=== PATIENT | male | born 1960 | race Caucasian/White ===

== ENCOUNTER 2021-08-04 11:04 | Day surgery (SDC) | payer MEDICAID ==
[2021-08-04] VITALS (8 sets, daily range): BP systolic 101–157; BP diastolic 41–67
[~2021-08-04] VITALS: Ht 182.9 cm; Wt 113.6 kg
[~2021-08-04 11:04] MED LIST: ALBU18HF2 PO; ALBU6.7H9 INH; ASPI81TA35 PO; ATOR40TA PO; BECL8.7A7 INH; CARV-49 PO; FURO-150 PO; GABA-532 PO; LIDOcaine 1% (10mg/ml)w/preservative injection 20ml MDV ONE; LISI-790 PO; METF750T46 PO; NITR0.4T51 SL; POTA-197 PO; fentaNYL/PF 50MCG/1 ML 2ML syringe ONE; heparin 1,000unit/ml 10ml vial 10 ML ONE; iohexol 350MG/ML 100ml bottle IV ONE; midazolam 1 mg/ML 2ml injection ONE; nitroGLYCERIN-Tridil 50MG/D5W 250 ML IV ONE; oxygen; verapamil 2.5 mg/ml inj IV ONE
[2021-08-04] MEDS ORDERED: LORazepam 0.5 MG tablet PO PRN (11:30)
[2021-08-04] MEDS ORDERED: LIDOcaine/PRILOcaine 5gm cream TP ONE (11:30)
[2021-08-04] MEDS ORDERED: diphenhydrAMINE 25mg capsule PO PRN (11:30)
[2021-08-04] MEDS ORDERED: normal saline 1,000 ML IV SCH (11:30)
[2021-08-04] MEDS ORDERED: HYDR-3972 PO (11:38)
[2021-08-04] MEDS ORDERED: ERTU5TAB PO (11:38)
[2021-08-04] MEDS ORDERED: TRAZ-256 PO (11:38)
[2021-08-04] MEDS ORDERED: APIX5TAB3 PO (11:38)
[2021-08-04] MEDS ORDERED: midazolam 1 mg/ML 2ml injection ONE (13:51)
[2021-08-04] MEDS ORDERED: iohexol 350MG/ML 100ml bottle IV ONE (13:57)
[2021-08-04] MEDS ORDERED: ticagrelor 90mg tablet ONE (14:08)
[2021-08-04] MEDS ORDERED: aspirin 325mg tablet ONE (14:10)
[2021-08-04] MEDS ORDERED: HYDROcodone/acetaminophen 5mg/325mg tablet PO PRN (14:45)
[2021-08-04] MEDS ORDERED: proCHLORperazine 10 MG/2 ml inj IV PRN (14:45)
[2021-08-04] MEDS ORDERED: ondansetron/PF 4mg/2ml inj IV PRN (14:45)
[2021-08-04] MEDS ORDERED: HYDROcodone/acetaminophen 10/325mg tab PO PRN (14:45)
[2021-08-04] MEDS ORDERED: OXAZEpam 15mg capsule PO PRN (14:45)
[2021-08-04] MEDS ORDERED: ticagrelor 90mg tablet PO SCH (20:00)
== END 2021-08-04 17:31 | disposition home or self-care (01) ==
LOC: SSTAY O 11:04
PROVIDERS: ATTEND Internal Medicine Interventional Cardiology
DX: R07.89 Other chest pain (principal); I25.10 Atherosclerotic heart disease of native coronary artery without angina pectoris; G47.33 Obstructive sleep apnea (adult) (pediatric); E11.9 Type 2 diabetes mellitus without complications; I11.0 Hypertensive heart disease with heart failure; I50.9 Heart failure, unspecified; E78.5 Hyperlipidemia, unspecified; J44.9 Chronic obstructive pulmonary disease, unspecified; Z86.73 Personal history of transient ischemic attack (TIA), and cerebral infarction without residual deficits; Z86.19 Personal history of other infectious and parasitic diseases; Z88.0 Allergy status to penicillin; Z91.09 Other allergy status, other than to drugs and biological substances; Z88.8 Allergy status to other drugs, medicaments and biological substances; Z95.810 Presence of automatic (implantable) cardiac defibrillator
CPT/HCPCS: 93005; 93458; 99152; 99153; C1725; C1751; C1769; C1874; C1894; C9600; J1644; J2001; J2250; J3010; J7030; Q0163; Q9967; A4620; J3490

== ENCOUNTER 2022-01-28 01:14 | Inpatient (IN) | payer MEDICAID ==
[~2022-01-28] VITALS: Ht 177.8 cm; Wt 118.4 kg
[~2022-01-28 01:14] MED LIST changes: -ALBU18HF2 PO; -ALBU6.7H9 INH; +APIX5TAB3 PO; -ASPI81TA35 PO; -BECL8.7A7 INH; +ERTU5TAB PO; -FURO-150 PO; +HYDR-3972 PO; -LIDOcaine 1% (10mg/ml)w/preservative injection 20ml MDV ONE; -LISI-790 PO; +LISI5TAB22 PO; -METF750T46 PO; -NITR0.4T51 SL; -POTA-197 PO; +TRAZ-256 PO; -fentaNYL/PF 50MCG/1 ML 2ML syringe ONE; -heparin 1,000unit/ml 10ml vial 10 ML ONE; -iohexol 350MG/ML 100ml bottle IV ONE; -midazolam 1 mg/ML 2ml injection ONE; -nitroGLYCERIN-Tridil 50MG/D5W 250 ML IV ONE; -oxygen; -verapamil 2.5 mg/ml inj IV ONE
[2022-01-28 01:50] LABS: BASOPHILS % (AUTO) 0.4 % (0-1); EOSINOPHILS # (AUTO) 0.2 X10'3 (0-0.9); EOSINOPHILS % (AUTO) 2.2 % (0-6); HEMATOCRIT 36.4 % (42.0-52.0); LYMPHOCYTES # (AUTO) 0.8 X10'3 (1.1-4.8); LYMPHOCYTES % (AUTO) 8.2 % (21-51); MEAN CORPUSCULAR HEMOGLOBIN 28.4 PG (27.0-31.0); MEAN CORPUSCULAR VOLUME 85.9 FL (78-98); MEAN PLATELET VOLUME 9.7 FL (7.4-10.4); MONOCYTES # (AUTO) 0.7 X10'3 (0-0.9); NEUTROPHILS # (AUTO) 8.3 X10'3 (1.8-7.7); NEUTROPHILS % (AUTO) 82.2 % (42-75); PLATELET COUNT 125 X10'3 (140-440); RED BLOOD COUNT 4.24 X10'6 (4.70-6.10); RED CELL DISTRIBUTION WIDTH 14.1 % (11.5-14.5)
[2022-01-28 02:06] LABS: ALANINE AMINOTRANSFERASE 26 U/L (12-78); ALBUMIN 3.2 G/DL (3.4-5.0); ALBUMIN/GLOBULIN RATIO 1.1 (1.1-1.5); ALKALINE PHOSPHATASE 60 IU/L (46-116); ANION GAP 8 (8-16); ASPARTATE AMINO TRANSFERASE 14 U/L (10-37); BILIRUBIN,TOTAL 0.4 MG/DL (0.1-1.0); BLOOD UREA NITROGEN 36 MG/DL (7-18); BUN/CREATININE RATIO 23.2 (5.4-32.0); CALCIUM 7.8 MG/DL (8.5-10.1); CHLORIDE 104 MMOL/L (99-107); CREATININE 1.55 MG/DL (0.60-1.10); GLUCOSE 182 MG/DL (70-104); POTASSIUM 5.1 MMOL/L (3.5-5.1); SODIUM 135 MMOL/L (135-145); TOTAL CARBON DIOXIDE 23.2 MMOL/L (24-32); TOTAL PROTEIN 6.2 G/DL (6.4-8.2); eGFR 46 ML/MIN
[2022-01-28 02:13] LABS: MAGNESIUM 1.4 MG/DL (1.5-2.4)
[2022-01-28] MEDS ORDERED: magnesium 2GM in 50ml NS 50 ML IV PRN (03:00)
[2022-01-28] MEDS ORDERED: magnesium 4gm in 100ml NS 100 ML IV PRN (03:00)
[2022-01-28] MEDS ORDERED: acetaminophen 325mg tablet PO PRN (03:00)
[2022-01-28] MEDS ORDERED: potassium Cl 20 mEq SR tablet PO PRN ×2 (03:00)
[2022-01-28] MEDS ORDERED: morphine 2 MG/ML inj. syringe IV PRN (03:00)
[2022-01-28] MEDS ORDERED: potassium CL 10mEq/100ml bag 100 ML IV PRN (03:00)
[2022-01-28] MEDS ORDERED: ondansetron/PF 4mg/2ml inj IV PRN (03:00)
[2022-01-28] MEDS ORDERED: FURO40TA4 PO (04:05)
[2022-01-28] MEDS ORDERED: CLOP75TA34 PO (04:05)
[2022-01-28] MEDS ORDERED: TRAZ-251 PO (04:05)
[2022-01-28] MEDS ORDERED: TICA90TA2 PO (04:05)
[2022-01-28] MEDS ORDERED: SEMA3TAB4 (04:05)
[2022-01-28] MEDS ORDERED: LISI20TA28 PO (04:05)
[2022-01-28] MEDS ORDERED: glucagon, human recombinant 1mg kit SUBCUT PRN (06:00)
[2022-01-28] MEDS ORDERED: dextrose 50%-water 50ml dispensing syringe IV PRN ×2 (06:00)
[2022-01-28] MEDS ORDERED: DEXTROSE 15 GM of carb/4 tabs (each vial/BOTTLE has 4 tablets) PO PRN ×2 (06:00)
[2022-01-28] MEDS ORDERED: MESSAGE TO PHARMACY PO ONE (06:00)
[2022-01-28 07:32] LABS: HEMOGLOBIN A1C 7.5 % (4.5-6.2)
[2022-01-28] MEDS ORDERED: ERTUGLIFLOZIN PIDOLATE 5 MG PO SCH (08:00)
[2022-01-28] MEDS: carVEDilol 12.5mg tablet PO SCH ×2 (08:00→19:33)
[2022-01-28] MEDS ORDERED: furosemide 40mg tablet PO SCH (08:00)
[2022-01-28] MEDS ORDERED: apixaban 5mg tablet PO SCH (08:00)
[2022-01-28] MEDS ORDERED: HYDROcodone/acetaminophen 10/325mg tab PO PRN (08:00)
[2022-01-28] MEDS: lisinopril 20mg tablet PO SCH ×2 (08:00→19:34)
[2022-01-28] MEDS: gabapentin 300mg capsule PO SCH ×4 (08:00→20:45)
[2022-01-28] MEDS: K and/or MAG REPLACEMENT MC SCH ×2 (08:00→19:28)
[2022-01-28] MEDS ORDERED: ticagrelor 90mg tablet PO SCH (08:00)
[2022-01-28 08:30] VITALS: BP 96/39
[2022-01-28] MEDS ORDERED: furosemide 10 MG/1 ML 10ml inj IV ONE (08:35)
[2022-01-28] MEDS ORDERED: nitroGLYCERIN 0.4mg SUBLingual tab SL PRN (08:35)
[2022-01-28] MEDS ORDERED: methylPREDNISolone sod succ 125mg/2ml vial IV ONE (08:35)
[2022-01-28] MEDS ORDERED: aminophylline 500mg/20ml vial IV PRN (08:35)
[2022-01-28] MEDS ORDERED: metoprolol tartrate 1mg/ml inj IV PRN (08:35)
[2022-01-28] MEDS ORDERED: regadenoson 0.4mg/5ml syringe IV PRN (08:35)
--- NOTE | 2022-01-28 09:17 | NUR ---
Page to Dr. Benitez Message: [id number] Braeden Baird- Unable to do stress today. Need clarification on blood thinners. Zuyl [id number]
[2022-01-28] MEDS: azithromycin 250mg tablet PO SCH (09:34)
[2022-01-28] MEDS: clopidogrel 75mg tablet PO SCH (09:35)
[2022-01-28] MEDS: atorvastatin 20mg tablet PO SCH (09:35)
[2022-01-28] MEDS: CefTRIAXone/D5W-Rocephin 1gm 50 ML IV SCH (10:23)
[2022-01-28 11:00] VITALS: BP 107/47
[2022-01-28] MEDS: ipratropium/albuterol 3ml nebule NEB SCH ×4 (11:00→22:49)
[2022-01-28] MEDS: aspirin 81mg, enteric-coated 1 TAB TABLET.DR PO SCH (11:13)
[2022-01-28] MEDS: magnesium Cl slow-release 64mg tablet PO PRN ×2 (11:13→19:26)
[2022-01-28] MEDS ORDERED: SPIR25TA PO (14:19)
[2022-01-28 15:00] VITALS: BP 126/52
--- NOTE | 2022-01-28 15:55 | NUR ---
Page to Dr. Benitez Message: [id number] Braeden Baird- States he wants to be DNR. Zuly [id number]
[2022-01-28] MEDS: methylPREDNISolone sod succ 125mg/2ml vial IV SCH (16:39)
--- NOTE | 2022-01-28 17:44 | NUR ---
Page to Dr. Benitez Message: [id number] Oli [facility] Rec updated. Pt requests gabapentin 600 HS. Requests DNSerafin. Zuly [id number]
[2022-01-28 18:00] VITALS: BP 113/37
--- NOTE | 2022-01-28 18:10 | NUR ---
Problems reprioritized. Patient report given, questions answered & plan of care reviewed with Judith LONDONO.
[2022-01-28 19:00] VITALS: BP 96/46
[2022-01-28] MEDS: insulin Lispro (HumaLOG) vial - multi-dose SQ SCH ×2 (19:24→21:16)
[2022-01-28] MEDS: furosemide 10 MG/1 ML 10ml inj IV SCH (19:32)
[2022-01-28] MEDS: traZODone 50mg tablet PO SCH (20:46)
[2022-01-28] MEDS: insulin glargine (Lantus) pen - multi-dose SQ SCH (21:13)
[2022-01-28 22:00] VITALS: BP 114/46
[2022-01-29] VITALS (20 sets, daily range): BP systolic 105–137; BP diastolic 34–63
[2022-01-29] MEDS: methylPREDNISolone sod succ 125mg/2ml vial IV SCH ×3 (00:53→15:10)
[2022-01-29] MEDS: ipratropium/albuterol 3ml nebule NEB SCH ×5 (03:03→23:00)
[2022-01-29 06:32] LABS: BASOPHILS % (AUTO) 0.1 % (0-1); EOSINOPHILS % (AUTO) 0 % (0-6); HEMOGLOBIN 11.9 g/dl (14.0-17.9); LYMPHOCYTES # (AUTO) 0.8 X10'3 (1.1-4.8); LYMPHOCYTES % (AUTO) 6.5 % (21-51); MEAN CORPUSCULAR HEMOGLOBIN 27.9 PG (27.0-31.0); MEAN CORPUSCULAR HGB CONC 33.1 g/dL (33.0-36.5); MEAN CORPUSCULAR VOLUME 84.2 FL (78-98); MEAN PLATELET VOLUME 9.8 FL (7.4-10.4); MONOCYTES # (AUTO) 0.2 X10'3 (0-0.9); MONOCYTES % (AUTO) 1.7 % (2-12); NEUTROPHILS # (AUTO) 11.1 X10'3 (1.8-7.7); NEUTROPHILS % (AUTO) 91.7 % (42-75); PLATELET COUNT 133 X10'3 (140-440); RED BLOOD COUNT 4.27 X10'6 (4.70-6.10); RED CELL DISTRIBUTION WIDTH 14.1 % (11.5-14.5); WHITE BLOOD COUNT 12.1 X10'3 (4.5-11.0)
--- NOTE | 2022-01-29 06:38 | NUR ---
Problems reprioritized. Patient report given, questions answered & plan of care reviewed with LUC LONDONO.
[2022-01-29 06:41] LABS: ALBUMIN 3.3 G/DL (3.4-5.0); ANION GAP 10 (8-16); BLOOD UREA NITROGEN 37 MG/DL (7-18); BUN/CREATININE RATIO 25.9 (5.4-32.0); CALCIUM 8.4 MG/DL (8.5-10.1); CHLORIDE 103 MMOL/L (99-107); CREATININE 1.43 MG/DL (0.60-1.10); GLUCOSE 236 MG/DL (70-104); POTASSIUM 4.6 MMOL/L (3.5-5.1); SODIUM 135 MMOL/L (135-145); TOTAL CARBON DIOXIDE 21.7 MMOL/L (24-32); eGFR 50 ML/MIN
[2022-01-29] MEDS: K and/or MAG REPLACEMENT MC SCH ×2 (08:00→19:22)
[2022-01-29] MEDS: aspirin 81mg, enteric-coated 1 TAB TABLET.DR PO SCH ×2 (08:00→13:44)
[2022-01-29] MEDS: clopidogrel 75mg tablet PO SCH ×2 (08:00→13:44)
[2022-01-29] MEDS: furosemide 10 MG/1 ML 10ml inj IV SCH ×2 (08:00→19:21)
[2022-01-29] MEDS: insulin Lispro (HumaLOG) vial - multi-dose SQ SCH ×4 (08:25→21:17)
[2022-01-29] MEDS ORDERED: regadenoson 0.4mg/5ml syringe IV PRN (08:50)
--- NOTE | 2022-01-29 10:00 | NUR ---
Made Dr. Benitez aware blood pressure medication and lasix have been held for low blood pressure. He states to hold off on AM medications until he returned from stress test and see how his blood pressure is when he returns.
[2022-01-29] MEDS: CefTRIAXone/D5W-Rocephin 1gm 50 ML IV SCH (10:20)
--- NOTE | 2022-01-29 11:00 | NUR ---
Dr. Benitez paged with current blood pressure and heart rate to clarify medications
--- NOTE | 2022-01-29 12:01 | NUR ---
Dr. Benitez called back stating to keep patient NPO. States okay to give blood pressure medications.
[2022-01-29] MEDS: carVEDilol 12.5mg tablet PO SCH ×2 (12:08→19:30)
[2022-01-29] MEDS: lisinopril 20mg tablet PO SCH ×2 (12:09→19:34)
[2022-01-29] MEDS: azithromycin 250mg tablet PO SCH (12:11)
[2022-01-29] MEDS: atorvastatin 20mg tablet PO SCH (12:11)
--- NOTE | 2022-01-29 15:18 | NUR ---
Page to Dr. Benitez Message: [id number] Braeden Baird- Wants to be full code now. Zuly [id number]
--- NOTE | 2022-01-29 15:42 | NUR ---
DM Consult: Pt hx T2DM A1C 7.5% currently NPO pending cardiac cath per EMR. Written DM ed w/ RD contact information placed in pt chart. Addendum: 01/29/22 at [address] Amended: Links added.
[2022-01-29] MEDS ORDERED: fentaNYL/PF 50MCG/1 ML 2ML syringe ONE (16:49)
[2022-01-29] MEDS ORDERED: nitroGLYCERIN-Tridil 50MG/D5W 250 ML IV ONE (16:49)
[2022-01-29] MEDS ORDERED: iohexol 350MG/ML 100ml bottle IV ONE (16:49)
[2022-01-29] MEDS ORDERED: LIDOcaine 1% (10mg/ml)w/preservative injection 20ml MDV ONE (16:49)
[2022-01-29] MEDS ORDERED: iohexol 350 MG/ML 50ML vial IV ONE (16:49)
[2022-01-29] MEDS ORDERED: heparin 1,000unit/ml 10ml vial 10 ML ONE (16:49)
[2022-01-29] MEDS ORDERED: midazolam 1 mg/ML 2ml injection ONE ×2 (16:49→17:36)
[2022-01-29] MEDS ORDERED: verapamil 2.5 mg/ml inj IV ONE (16:49)
[2022-01-29] MEDS ORDERED: furosemide 40mg/4ml inj ONE (17:41)
--- NOTE | 2022-01-29 18:00 | NUR ---
Patient arrived from lab rn. Right radial pressure TR band in place. No hematoma present or signs of bleeding. Pulse ox in place on right thumb. Good circulation with no complaints of numbness and tingling. Vital signs stable and patient is alert and orientated.
--- NOTE | 2022-01-29 18:10 | NUR ---
Problems reprioritized. Patient report given, questions answered & plan of care reviewed with Judith LONDONO.
--- NOTE | 2022-01-29 20:42 | NUR ---
vascband removed no hematoma noted at this time
[2022-01-29] MEDS: gabapentin 300mg capsule PO SCH (21:04)
[2022-01-29] MEDS: traZODone 50mg tablet PO SCH (21:04)
[2022-01-29] MEDS: insulin glargine (Lantus) pen - multi-dose SQ SCH (21:14)
[2022-01-30] MEDS: methylPREDNISolone sod succ 125mg/2ml vial IV SCH ×2 (00:45→08:31)
[2022-01-30 02:00] VITALS: BP 108/58
[2022-01-30] MEDS: ipratropium/albuterol 3ml nebule NEB SCH ×3 (03:00→11:43)
[2022-01-30 06:00] VITALS: BP 111/48
--- NOTE | 2022-01-30 06:15 | NUR ---
Problems reprioritized. Patient report given, questions answered & plan of care reviewed with LUC LONDONO.
[2022-01-30 06:57] LABS: BASOPHILS % (AUTO) 0 % (0-1); EOSINOPHILS % (AUTO) 0 % (0-6); HEMATOCRIT 36.4 % (42.0-52.0); HEMOGLOBIN 12.3 g/dl (14.0-17.9); LYMPHOCYTES # (AUTO) 0.9 X10'3 (1.1-4.8); LYMPHOCYTES % (AUTO) 7.1 % (21-51); MEAN CORPUSCULAR HEMOGLOBIN 28.4 PG (27.0-31.0); MEAN CORPUSCULAR HGB CONC 33.9 g/dL (33.0-36.5); MEAN CORPUSCULAR VOLUME 83.8 FL (78-98); MEAN PLATELET VOLUME 10.2 FL (7.4-10.4); MONOCYTES # (AUTO) 0.5 X10'3 (0-0.9); MONOCYTES % (AUTO) 3.8 % (2-12); NEUTROPHILS # (AUTO) 11.7 X10'3 (1.8-7.7); NEUTROPHILS % (AUTO) 89.1 % (42-75); PLATELET COUNT 146 X10'3 (140-440); RED BLOOD COUNT 4.35 X10'6 (4.70-6.10); WHITE BLOOD COUNT 13.1 X10'3 (4.5-11.0)
[2022-01-30 07:07] LABS: ALBUMIN 3.5 G/DL (3.4-5.0); ANION GAP 10 (8-16); BLOOD UREA NITROGEN 44 MG/DL (7-18); BUN/CREATININE RATIO 28.2 (5.4-32.0); CALCIUM 8.6 MG/DL (8.5-10.1); CHLORIDE 103 MMOL/L (99-107); CREATININE 1.56 MG/DL (0.60-1.10); GLUCOSE 207 MG/DL (70-104); POTASSIUM 4.5 MMOL/L (3.5-5.1); SODIUM 136 MMOL/L (135-145); TOTAL CARBON DIOXIDE 23.2 MMOL/L (24-32); eGFR 45 ML/MIN
[2022-01-30] MEDS: furosemide 10 MG/1 ML 10ml inj IV SCH (08:00)
[2022-01-30] MEDS: K and/or MAG REPLACEMENT MC SCH (08:00)
[2022-01-30] MEDS ORDERED: heparin, porcine 5000 units/ml vial SQ SCH (08:00)
[2022-01-30] MEDS: atorvastatin 20mg tablet PO SCH (08:18)
[2022-01-30] MEDS: aspirin 81mg, enteric-coated 1 TAB TABLET.DR PO SCH (08:18)
[2022-01-30] MEDS: carVEDilol 12.5mg tablet PO SCH (08:18)
[2022-01-30] MEDS: clopidogrel 75mg tablet PO SCH (08:18)
[2022-01-30] MEDS: azithromycin 250mg tablet PO SCH (08:19)
[2022-01-30] MEDS: CefTRIAXone/D5W-Rocephin 1gm 50 ML IV SCH (08:23)
[2022-01-30] MEDS: lisinopril 20mg tablet PO SCH (08:32)
[2022-01-30] MEDS: insulin Lispro (HumaLOG) vial - multi-dose SQ SCH ×2 (08:45→13:17)
[2022-01-30 11:00] VITALS: BP 117/46
--- NOTE | 2022-01-30 11:24 | NUR ---
O2 Sat at rest on room air: 95 % If below 89%: Recovery O2 Sat at rest on ___LPM:___%:___% via (mask/nasal cannula, etc..) No further documentation is necessary. If O2 Sat did not drop below 89% on room air,ambulate patient on room air. O2 Sat while ambulating on room air: 91 % Recovery O2 Sat while ambulating on ___LPM:___% No further documentation is necessary. If patient does not drop below 89% while ambulating, he/she does not qualify for home O2.
[2022-01-30] MEDS ORDERED: ASPI-1071 PO (11:55)
[2022-01-30] MEDS ORDERED: CLOP75TA15 PO (11:55)
[2022-01-30] MEDS ORDERED: CEFD300C3 PO (11:55)
[2022-01-30] MEDS ORDERED: PRED10TA23 PO (11:59)
[2022-01-30] MEDS ORDERED: BUDE10.22 INH (12:27)
[2022-01-30] MEDS ORDERED: ALBU8.5H17 INH (12:27)
--- NOTE | 2022-01-30 13:32 | NUR ---
Patient stable for discharge. PIV removed with catheter intact X2. Telemetry removed. Discharge instructions given and patient verbalized understanding. All possessions gathered and patient transferred safely to personal vehicle.
== END 2022-01-30 14:14 | disposition home or self-care (01) | DRG 191 ==
LOC: ER 01:15 → ED HOLD 02:58 → UNDOADMIN 02:58 → ED HOLD 03:00 → PCU 3S 11:11 → ED HOLD 11:11
PROVIDERS: ADMIT Internal Medicine; ATTEND Family Medicine
PROC: 4A023N7 Measurement of Cardiac Sampling and Pressure, Left Heart, Percutaneous Approach (ICD-10-PCS; principal; 2022-01-29)
PROC: B2111ZZ Fluoroscopy of Multiple Coronary Arteries using Low Osmolar Contrast (ICD-10-PCS; 2022-01-29)
PROC: 4A02XM4 Measurement of Cardiac Total Activity, External Approach (ICD-10-PCS; 2022-01-29)
PROC: 3E033HZ Introduction of Radioactive Substance into Peripheral Vein, Percutaneous Approach (ICD-10-PCS; 2022-01-29)
DX: I25.119 Atherosclerotic heart disease of native coronary artery with unspecified angina pectoris (principal); I50.23 Acute on chronic systolic (congestive) heart failure; J96.10 Chronic respiratory failure, unspecified whether with hypoxia or hypercapnia; I24.9 Acute ischemic heart disease, unspecified; Z20.822 Contact with and (suspected) exposure to COVID-19; I11.0 Hypertensive heart disease with heart failure; B18.2 Chronic viral hepatitis C; E11.65 Type 2 diabetes mellitus with hyperglycemia; E78.00 Pure hypercholesterolemia, unspecified; G89.29 Other chronic pain; M54.9 Dorsalgia, unspecified; E78.5 Hyperlipidemia, unspecified; F12.90 Cannabis use, unspecified, uncomplicated; G47.33 Obstructive sleep apnea (adult) (pediatric); J44.9 Chronic obstructive pulmonary disease, unspecified; Z79.02 Long term (current) use of antithrombotics/antiplatelets; Z82.3 Family history of stroke; Z83.3 Family history of diabetes mellitus; Z91.19 Patient's noncompliance with other medical treatment and regimen; Z95.5 Presence of coronary angioplasty implant and graft; Z95.810 Presence of automatic (implantable) cardiac defibrillator; Z99.81 Dependence on supplemental oxygen; Z56.0 Unemployment, unspecified; Z88.0 Allergy status to penicillin; Z88.8 Allergy status to other drugs, medicaments and biological substances; Z79.899 Other long term (current) drug therapy
CPT/HCPCS: 36415; 71045; 78452; 80048; 80053; 82948; 83036; 83735; 83880; 84132; 84484; 85025; 87081; 87635; 93005; 93017; 93458; 94640; 94760; 96365; 96375; 99152; 99285; A4663; A5120; A9500; C1769; C1894; C9803; G0378; J0696; J1644; J1815; J1940; J2250; J2785; J2930; J3010; J3490; Q9967

== ENCOUNTER 2022-09-05 18:58 | Inpatient (IN) | payer MEDICAID ==
[~2022-09-05] VITALS: Ht 177.8 cm; Wt 115.5 kg
[~2022-09-05 18:58] MED LIST changes: +ALBU8.5H17 INH; -APIX5TAB3 PO; +ASPI-1071 PO; +BUDE10.22 INH; +CLOP75TA15 PO; +CLOP75TA34 PO; -ERTU5TAB PO; +LISI20TA28 PO; -LISI5TAB22 PO; +PRED10TA PO; +SEMA3TAB4; +SPIR25TA PO; +TRAZ-251 PO; -TRAZ-256 PO
[2022-09-05 19:38] LABS: BASOPHILS % (AUTO) 0.4 % (0-1); EOSINOPHILS # (AUTO) 0.2 X10'3 (0-0.9); EOSINOPHILS % (AUTO) 1.8 % (0-6); HEMOGLOBIN 14.9 g/dl (14.0-17.9); LYMPHOCYTES # (AUTO) 1.1 X10'3 (1.1-4.8); LYMPHOCYTES % (AUTO) 9.4 % (21-51); MEAN CORPUSCULAR HEMOGLOBIN 27.7 PG (27.0-31.0); MEAN CORPUSCULAR HGB CONC 33.8 g/dL (33.0-36.5); MEAN CORPUSCULAR VOLUME 81.9 FL (78-98); MEAN PLATELET VOLUME 9.8 FL (7.4-10.4); NEUTROPHILS # (AUTO) 9.3 X10'3 (1.8-7.7); NEUTROPHILS % (AUTO) 79.4 % (42-75); PLATELET COUNT 162 X10'3 (140-440); RED BLOOD COUNT 5.37 X10'6 (4.70-6.10); RED CELL DISTRIBUTION WIDTH 16.1 % (11.5-14.5); WHITE BLOOD COUNT 11.7 X10'3 (4.5-11.0)
[2022-09-05 20:05] LABS: ALANINE AMINOTRANSFERASE 59 U/L (12-78); ALBUMIN 3.6 G/DL (3.4-5.0); ALBUMIN/GLOBULIN RATIO 1.2 (1.1-1.5); ALKALINE PHOSPHATASE 88 IU/L (46-116); ANION GAP 11 (8-16); ASPARTATE AMINO TRANSFERASE 13 U/L (10-37); BILIRUBIN,TOTAL 0.7 MG/DL (0.1-1.0); BLOOD UREA NITROGEN 38 MG/DL (7-18); BUN/CREATININE RATIO 22.5 (5.4-32.0); CALCIUM 8.9 MG/DL (8.5-10.1); CHLORIDE 102 MMOL/L (99-107); CREATININE 1.69 MG/DL (0.60-1.10); GLUCOSE 170 MG/DL (70-104); POTASSIUM 4.8 MMOL/L (3.5-5.1); SODIUM 140 MMOL/L (135-145); TOTAL CARBON DIOXIDE 26.9 MMOL/L (24-32); TOTAL PROTEIN 6.5 G/DL (6.4-8.2); eGFR 41 ML/MIN
--- NOTE | 2022-09-05 20:17 | NUR ---
troponin 101. Dr. Patton notified
[2022-09-05] MEDS ORDERED: furosemide 10 MG/1 ML 10ml inj IV ONE (21:45)
[2022-09-05] MEDS ORDERED: magnesium hydroxide 30ml (MOM) UD suspension PO PRN (23:15)
[2022-09-05] MEDS ORDERED: diphenhydrAMINE 50 mg/ml inj IV PRN (23:15)
[2022-09-05] MEDS ORDERED: mag hydrox/Alum hydrox/simeth 30ml oral suspension PO PRN (23:15)
[2022-09-05] MEDS ORDERED: ondansetron/PF 4mg/2ml inj IV PRN (23:15)
[2022-09-05] MEDS ORDERED: HYDROcodone/acetaminophen 5mg/325mg tablet PO PRN (23:15)
[2022-09-05] MEDS ORDERED: ondansetron 4mg rapidly disintigrating tab PO PRN (23:15)
[2022-09-05] MEDS ORDERED: HYDROcodone/acetaminophen 10/325mg tab PO PRN (23:15)
[2022-09-05] MEDS ORDERED: morphine 2 MG/ML inj. syringe IV PRN ×2 (23:15)
[2022-09-05] MEDS ORDERED: bisacodyl 10mg suppository rectal RC PRN (23:15)
[2022-09-05] MEDS ORDERED: diphenhydrAMINE 25mg capsule PO PRN (23:15)
[2022-09-05] MEDS ORDERED: acetaminophen 325mg tablet PO PRN ×2 (23:15)
[2022-09-05] MEDS ORDERED: glucagon, human recombinant 1mg kit SUBCUT PRN (23:20)
[2022-09-05] MEDS ORDERED: dextrose 50%-water 50ml dispensing syringe IV PRN ×2 (23:20)
[2022-09-05] MEDS ORDERED: insulin Lispro (HumaLOG) vial - multi-dose SQ SCH (23:20)
[2022-09-05] MEDS ORDERED: DEXTROSE 15 GM of carb/4 tabs (each vial/BOTTLE has 4 tablets) PO PRN ×2 (23:20)
[2022-09-05] MEDS ORDERED: MESSAGE TO PHARMACY PO ONE (23:20)
[2022-09-05 23:38] LABS: MAGNESIUM 1.9 MG/DL (1.5-2.4); PHOSPHORUS 4.8 MG/DL (2.3-4.5)
[2022-09-05 23:53] LABS: APTT 27 SECONDS (22-32); D-DIMER 1.03 MG/L FEU (0-0.50)
[2022-09-06] MEDS ORDERED: ERTU15TA PO (00:50)
[2022-09-06] MEDS ORDERED: IPRA3AMP31 NEB (00:50)
[2022-09-06] MEDS ORDERED: GABA300C PO (00:50)
[2022-09-06] MEDS ORDERED: BUDE10.27 INH (00:50)
[2022-09-06] MEDS ORDERED: FURO40TA4 PO (00:50)
[2022-09-06] MEDS ORDERED: SACU1TAB PO (00:50)
[2022-09-06] MEDS ORDERED: BUSP7.5T5 PO (00:50)
[2022-09-06] MEDS ORDERED: ATOR-2 PO (00:50)
[2022-09-06] MEDS ORDERED: ASPI81TA52 PO (00:53)
[2022-09-06] MEDS ORDERED: ALBU8.5H17 IH (00:53)
[2022-09-06] MEDS ORDERED: albuterol 2.5 MG/3 ML nebule NEB PRN (03:40)
[2022-09-06 03:44] LABS: BASOPHILS % (AUTO) 0.3 % (0-1); EOSINOPHILS # (AUTO) 0.1 X10'3 (0-0.9); EOSINOPHILS % (AUTO) 1.1 % (0-6); HEMATOCRIT 44.3 % (42.0-52.0); HEMOGLOBIN 14.6 g/dl (14.0-17.9); LYMPHOCYTES # (AUTO) 1.8 X10'3 (1.1-4.8); LYMPHOCYTES % (AUTO) 16.6 % (21-51); MEAN CORPUSCULAR HEMOGLOBIN 27.4 PG (27.0-31.0); MEAN CORPUSCULAR VOLUME 82.9 FL (78-98); MEAN PLATELET VOLUME 9.9 FL (7.4-10.4); MONOCYTES # (AUTO) 0.9 X10'3 (0-0.9); MONOCYTES % (AUTO) 8.1 % (2-12); NEUTROPHILS # (AUTO) 8.1 X10'3 (1.8-7.7); NEUTROPHILS % (AUTO) 73.9 % (42-75); PLATELET COUNT 162 X10'3 (140-440); RED BLOOD COUNT 5.34 X10'6 (4.70-6.10); RED CELL DISTRIBUTION WIDTH 16.2 % (11.5-14.5); WHITE BLOOD COUNT 10.9 X10'3 (4.5-11.0)
[2022-09-06 04:40] LABS: ALANINE AMINOTRANSFERASE 66 U/L (12-78); ALBUMIN 3.7 G/DL (3.4-5.0); ALBUMIN/GLOBULIN RATIO 1.3 (1.1-1.5); ALKALINE PHOSPHATASE 64 IU/L (46-116); ANION GAP 14 (8-16); ASPARTATE AMINO TRANSFERASE 21 U/L (10-37); BILIRUBIN,TOTAL 1.1 MG/DL (0.1-1.0); BLOOD UREA NITROGEN 39 MG/DL (7-18); BUN/CREATININE RATIO 24.4 (5.4-32.0); CALCIUM 8.9 MG/DL (8.5-10.1); CHLORIDE 99 MMOL/L (99-107); GLUCOSE 125 MG/DL (70-104); POTASSIUM 4.3 MMOL/L (3.5-5.1); SODIUM 141 MMOL/L (135-145); TOTAL CARBON DIOXIDE 28.3 MMOL/L (24-32); TOTAL PROTEIN 6.6 G/DL (6.4-8.2); eGFR 44 ML/MIN
[2022-09-06] MEDS: budesonide 0.5mg/2ml UD nebule IH SCH ×2 (07:16→19:54)
[2022-09-06] MEDS: ipratropium/albuterol 3ml nebule NEB SCH ×3 (07:16→19:54)
[2022-09-06] MEDS: aspirin 81mg, enteric-coated 1 TAB TABLET.DR PO SCH (07:49)
[2022-09-06] MEDS: carvedilol 6.25mg tablet PO SCH ×2 (07:50→20:35)
[2022-09-06] MEDS: clopidogrel 75mg tablet PO SCH (07:50)
[2022-09-06] MEDS: pantoprazole 40mg Tablet.DR PO SCH (07:50)
[2022-09-06] MEDS: gabapentin 300mg capsule PO SCH ×3 (07:50→20:34)
[2022-09-06] MEDS: docusate sod 100mg capsule PO SCH ×2 (07:59→20:35)
[2022-09-06] MEDS: heparin, porcine 5000 units/ml vial SQ SCH ×2 (07:59→20:35)
[2022-09-06] MEDS ORDERED: furosemide 10 MG/1 ML 10ml inj IV SCH (08:00)
[2022-09-06] MEDS: sacubitril/valsartan 24mg-26mg tablet PO SCH ×2 (08:30→20:34)
[2022-09-06] MEDS: busPIRone 15mg tablet PO SCH ×2 (08:30→20:34)
[2022-09-06] MEDS: spironolactone 25 MG tablet PO SCH (08:31)
[2022-09-06 10:04] VITALS: BP 106/44
--- NOTE | 2022-09-06 10:04 | NUR ---
Pt arrived to the PCU.
[2022-09-06] MEDS ORDERED: magnesium 4gm in 100ml NS 100 ML IV PRN (11:00)
[2022-09-06] MEDS ORDERED: potassium CL 10mEq/100ml bag 100 ML IV PRN (11:00)
[2022-09-06] MEDS ORDERED: magnesium Cl slow-release 64mg tablet PO PRN (11:00)
[2022-09-06] MEDS ORDERED: potassium Cl 20 mEq SR tablet PO PRN ×2 (11:00)
[2022-09-06] MEDS ORDERED: furosemide 40mg/4ml inj IV STA (11:35)
[2022-09-06 11:44] LABS: HEMOGLOBIN A1C 7.4 % (4.5-6.2)
[2022-09-06 12:50] LABS: CHOL/HDL RATIO 2.8 (0.00-4.99); CHOLESTEROL 141 MG/DL (0-200); HDL CHOLESTEROL 51 MG/DL (35-60); LDL CHOLESTEROL 79 MG/DL (50-100); TRIGLYCERIDES 88 MG/DL (20-135)
[2022-09-06 15:00] VITALS: BP 103/52
--- NOTE | 2022-09-06 15:51 | NUR ---
Notified Dr. Emmanuel Carreno Is requesting Ativan for anxiety.
[2022-09-06 18:00] VITALS: BP 134/64
[2022-09-06] MEDS: K and/or MAG REPLACEMENT MC SCH (20:00)
[2022-09-06] MEDS: furosemide 10 MG/1 ML 10ml inj IV SCH (20:00)
[2022-09-06] MEDS ORDERED: traZODone 50mg tablet PO SCH (21:00)
[2022-09-06] MEDS ORDERED: atorvastatin 20mg tablet PO SCH (21:00)
[2022-09-06] MEDS ORDERED: insulin glargine (Lantus) pen - multi-dose SQ SCH (21:00)
[2022-09-06 22:00] VITALS: BP 108/52
[2022-09-07 02:08] VITALS: BP 106/43
[2022-09-07 06:00] VITALS: BP 104/55
--- NOTE | 2022-09-07 06:10 | NUR ---
Problems reprioritized. Patient report given, questions answered & plan of care reviewed with BRY SIM.
[2022-09-07 07:02] LABS: BASOPHILS # (AUTO) 0.1 X10'3 (0-0.2); BASOPHILS % (AUTO) 0.9 % (0-1); EOSINOPHILS # (AUTO) 0.3 X10'3 (0-0.9); EOSINOPHILS % (AUTO) 3.2 % (0-6); HEMATOCRIT 41.6 % (42.0-52.0); HEMOGLOBIN 13.6 g/dl (14.0-17.9); LYMPHOCYTES # (AUTO) 1.9 X10'3 (1.1-4.8); LYMPHOCYTES % (AUTO) 22.8 % (21-51); MEAN CORPUSCULAR HEMOGLOBIN 27.5 PG (27.0-31.0); MEAN CORPUSCULAR HGB CONC 32.8 g/dL (33.0-36.5); MEAN CORPUSCULAR VOLUME 83.7 FL (78-98); MEAN PLATELET VOLUME 10.1 FL (7.4-10.4); MONOCYTES # (AUTO) 0.9 X10'3 (0-0.9); MONOCYTES % (AUTO) 11.3 % (2-12); NEUTROPHILS # (AUTO) 5.1 X10'3 (1.8-7.7); NEUTROPHILS % (AUTO) 61.8 % (42-75); PLATELET COUNT 160 X10'3 (140-440); RED BLOOD COUNT 4.97 X10'6 (4.70-6.10); RED CELL DISTRIBUTION WIDTH 16.2 % (11.5-14.5); WHITE BLOOD COUNT 8.2 X10'3 (4.5-11.0)
[2022-09-07 07:33] LABS: ALANINE AMINOTRANSFERASE 44 U/L (12-78); ALBUMIN 3.2 G/DL (3.4-5.0); ALBUMIN/GLOBULIN RATIO 1.4 (1.1-1.5); ALKALINE PHOSPHATASE 57 IU/L (46-116); ANION GAP 6 (8-16); ASPARTATE AMINO TRANSFERASE 20 U/L (10-37); BILIRUBIN,TOTAL 1.1 MG/DL (0.1-1.0); BLOOD UREA NITROGEN 42 MG/DL (7-18); BUN/CREATININE RATIO 23.9 (5.4-32.0); CALCIUM 8.5 MG/DL (8.5-10.1); CHLORIDE 102 MMOL/L (99-107); CREATININE 1.76 MG/DL (0.60-1.10); GLUCOSE 112 MG/DL (70-104); MAGNESIUM 2.1 MG/DL (1.5-2.4); PHOSPHORUS 4.1 MG/DL (2.3-4.5); POTASSIUM 4.1 MMOL/L (3.5-5.1); SODIUM 139 MMOL/L (135-145); TOTAL CARBON DIOXIDE 30.8 MMOL/L (24-32); TOTAL PROTEIN 5.5 G/DL (6.4-8.2); eGFR 39 ML/MIN
[2022-09-07] MEDS: K and/or MAG REPLACEMENT MC SCH (08:00)
[2022-09-07] MEDS: carvedilol 6.25mg tablet PO SCH (08:09)
[2022-09-07] MEDS: clopidogrel 75mg tablet PO SCH (08:09)
[2022-09-07] MEDS: pantoprazole 40mg Tablet.DR PO SCH (08:09)
[2022-09-07] MEDS: aspirin 81mg, enteric-coated 1 TAB TABLET.DR PO SCH (08:10)
[2022-09-07] MEDS: docusate sod 100mg capsule PO SCH (08:10)
[2022-09-07] MEDS: heparin, porcine 5000 units/ml vial SQ SCH (08:10)
[2022-09-07] MEDS: gabapentin 300mg capsule PO SCH ×2 (08:10→12:31)
[2022-09-07 08:15] VITALS: BP 102/43
[2022-09-07] MEDS: furosemide 10 MG/1 ML 10ml inj IV SCH (08:18)
[2022-09-07] MEDS: budesonide 0.5mg/2ml UD nebule IH SCH (08:32)
[2022-09-07] MEDS: ipratropium/albuterol 3ml nebule NEB SCH ×2 (08:32→13:00)
--- NOTE | 2022-09-07 10:18 | NUR ---
Paged EKG [id number]. Oli. MONIKA order rec'd. Thx
[2022-09-07] MEDS: busPIRone 15mg tablet PO SCH (10:27)
[2022-09-07] MEDS: sacubitril/valsartan 24mg-26mg tablet PO SCH (10:29)
[2022-09-07] MEDS: spironolactone 25 MG tablet PO SCH (10:29)
[2022-09-07 10:30] VITALS: BP 107/52
--- NOTE | 2022-09-07 12:49 | NUR ---
DM consult: Per EMR pt with T2DM, well controlled with A1c 7.4% which is stable with A1c back to 2016. Written DM education with RD contact information placed in patient's chart. Will remain available. Addendum: 09/07/22 at [address] Amended: Links added.
--- NOTE | 2022-09-07 14:57 | NUR ---
Paged vascular [id number]. Oli. Pt ready back in the room. Thx
[2022-09-07 15:15] VITALS: BP 98/50
[2022-09-07] MEDS ORDERED: LORA-269 PO (16:56)
--- NOTE | 2022-09-07 17:34 | NUR ---
Pt stable for DC per MD orders PIV was removed - pt tolerated well. Tele box # 15 returned to telephoto engineer monitor. All d/c ppwk was rev'd with patient and patient - Pt verbalized understanding. IS given to patient and education provided. All personal belongings were sent with patient. Pt wheeled down in W/C to private vehicle where was waiting. Follow up Appts with PCP and Dr Currie have already been made by pt .
== END 2022-09-07 17:28 | disposition home or self-care (01) | DRG 194 ==
LOC: ER 18:59 → ED HOLD 23:16 → PCU 3S 09-06 09:58
PROVIDERS: ADMIT Family Medicine; ATTEND Family Medicine
PROC: CB121ZZ Planar Nuclear Medicine Imaging of Lungs and Bronchi using Technetium 99m (Tc-99m) (ICD-10-PCS; principal; 2022-09-07)
DX: I13.0 Hypertensive heart and chronic kidney disease with heart failure and stage 1 through stage 4 chronic kidney disease, or unspecified chronic kidney disease (principal); J96.20 Acute and chronic respiratory failure, unspecified whether with hypoxia or hypercapnia; I21.A1 Myocardial infarction type 2; I50.43 Acute on chronic combined systolic (congestive) and diastolic (congestive) heart failure; N17.9 Acute kidney failure, unspecified; E11.22 Type 2 diabetes mellitus with diabetic chronic kidney disease; E11.65 Type 2 diabetes mellitus with hyperglycemia; E78.00 Pure hypercholesterolemia, unspecified; F41.9 Anxiety disorder, unspecified; G89.4 Chronic pain syndrome; Z20.822 Contact with and (suspected) exposure to COVID-19; B19.20 Unspecified viral hepatitis C without hepatic coma; G47.00 Insomnia, unspecified; M54.9 Dorsalgia, unspecified; F32.A Depression, unspecified; I25.10 Atherosclerotic heart disease of native coronary artery without angina pectoris; E66.01 Morbid (severe) obesity due to excess calories; J44.9 Chronic obstructive pulmonary disease, unspecified; N18.9 Chronic kidney disease, unspecified; Z56.0 Unemployment, unspecified; Z83.3 Family history of diabetes mellitus; Z87.891 Personal history of nicotine dependence; Z95.0 Presence of cardiac pacemaker; Z95.5 Presence of coronary angioplasty implant and graft; Z99.81 Dependence on supplemental oxygen; Z88.0 Allergy status to penicillin; Z88.8 Allergy status to other drugs, medicaments and biological substances; Z79.899 Other long term (current) drug therapy; Z68.36 Body mass index [BMI] 36.0-36.9, adult
CPT/HCPCS: 36415; 71045; 78452; 80053; 80061; 82948; 83036; 83735; 83880; 84100; 84443; 84484; 85025; 85379; 85610; 85730; 87081; 87635; 93005; 93970; 94640; 94760; 99285; A9500; G0378; J1644; J1815; J1940

== ENCOUNTER 2022-10-29 16:26 | Inpatient (IN) | payer MEDICAID ==
[~2022-10-29] VITALS: Ht 177.8 cm; Wt 113.6 kg
[~2022-10-29 16:26] MED LIST changes: +ALBU8.5H17 IH; -ALBU8.5H17 INH; -ASPI-1071 PO; +ASPI81TA52 PO; +ATOR-2 PO; -ATOR40TA PO; -BUDE10.22 INH; +BUDE10.27 INH; +BUSP7.5T5 PO; -CLOP75TA15 PO; +ERTU15TA PO; +FURO40TA4 PO; -GABA-532 PO; +GABA300C PO; +IPRA3AMP31 NEB; +LORA-269 PO; +SACU1TAB PO; -SEMA3TAB4
[2022-10-29] MEDS ORDERED: calcium gluconate inj. 3 GM in normal saline 100ml IV soln 100 ML IV ONE (16:50)
[2022-10-29 16:58] LABS: BASOPHILS % (AUTO) 0.3 % (0-1); EOSINOPHILS % (AUTO) 0.1 % (0-6); HEMOGLOBIN 12.7 g/dl (14.0-17.9); LYMPHOCYTES # (AUTO) 0.5 X10'3 (1.1-4.8); LYMPHOCYTES % (AUTO) 6.9 % (21-51); MEAN CORPUSCULAR HEMOGLOBIN 27.3 PG (27.0-31.0); MEAN CORPUSCULAR HGB CONC 32.5 g/dL (33.0-36.5); MEAN CORPUSCULAR VOLUME 84.1 FL (78-98); MEAN PLATELET VOLUME 9.9 FL (7.4-10.4); MONOCYTES # (AUTO) 1.1 X10'3 (0-0.9); MONOCYTES % (AUTO) 15.1 % (2-12); NEUTROPHILS # (AUTO) 5.6 X10'3 (1.8-7.7); NEUTROPHILS % (AUTO) 77.6 % (42-75); PLATELET COUNT 419 X10'3 (140-440); RED BLOOD COUNT 4.64 X10'6 (4.70-6.10); RED CELL DISTRIBUTION WIDTH 19.6 % (11.5-14.5); WHITE BLOOD COUNT 7.3 X10'3 (4.5-11.0)
[2022-10-29] MEDS: CALCIUM GLUC 1gm/50ml NACL,iso 50 ML IV SCH ×4 (17:00→19:38)
[2022-10-29 17:05] LABS: ALBUMIN 2.9 G/DL (3.4-5.0); ANION GAP 15 (8-16); BLOOD UREA NITROGEN 98 MG/DL (7-18); BUN/CREATININE RATIO 23.3 (5.4-32.0); CALCIUM 8.7 MG/DL (8.5-10.1); CHLORIDE 85 MMOL/L (99-107); GLUCOSE 165 MG/DL (70-104); SODIUM 122 MMOL/L (135-145); TOTAL CARBON DIOXIDE 22.3 MMOL/L (24-32); eGFR 14 ML/MIN
[2022-10-29] MEDS ORDERED: normal saline 1000ML IV soln IVB ONE (17:10)
--- NOTE | 2022-10-29 17:44 | NUR ---
PT UP TO COMMODE WITH STAND BY ASSIST. PT SPO2 DECLINE TO 78% ON RA ON EXERTION. SPO2 RECOVERY ON RA QUICKLY.
[2022-10-29 18:06] LABS: ALANINE AMINOTRANSFERASE 318 U/L (12-78); ALBUMIN/GLOBULIN RATIO 0.8 (1.1-1.5); ALKALINE PHOSPHATASE 338 IU/L (46-116); ASPARTATE AMINO TRANSFERASE 383 U/L (10-37); BILIRUBIN,DIRECT 3.1 MG/DL (0-0.3); BILIRUBIN,TOTAL 3.5 MG/DL (0.1-1.0); TOTAL PROTEIN 6.7 G/DL (6.4-8.2)
[2022-10-29 18:22] LABS: TOTAL CELLS COUNTED 100
[2022-10-29 18:23] LABS: ANISOCYTOSIS 2+; ELLIPTOCYTES 1+; PLATELET ESTIMATE NORMAL; SCHISTOCYTES FEW
[2022-10-29 18:24] LABS: BURR CELLS 1+
[2022-10-29 18:25] LABS: POLYCHROMASIA FEW
--- NOTE | 2022-10-29 18:42 | NUR ---
ASSUMED CARE OF PATIENT AFTER RECIEVING REPORT PT. VISITING WITH FAMILY MEMBER, DENIES ANY C/O DISCOMFORT AT THIS TIME.
[2022-10-29 19:45] LABS: PHOSPHORUS 7.2 MG/DL (2.3-4.5)
[2022-10-29] MEDS ORDERED: acetaminophen 325mg tablet PO PRN (19:50)
[2022-10-29] MEDS ORDERED: normal saline 1000ml 1,000 ML IV SCH (19:50)
[2022-10-29 20:16] LABS: OSMOLALITY 296 MOSM/K (280-300)
[2022-10-29] MEDS ORDERED: LORA-269 PO ×2 (20:56→22:14)
[2022-10-29] MEDS ORDERED: temazepam 15mg capsule PO PRN (21:00)
[2022-10-29] MEDS: sodium bicarbonate (8.4%) inj. 100 MEQ in dextrose 5%-water 1,000 ML IV SCH (21:23)
[2022-10-29] MEDS: heparin, porcine 5000 units/ml vial SQ SCH (21:24)
[2022-10-29 21:40] LABS: CLARITY,URINE CLOUDY (Clear); COLOR,URINE YELLOW (Yellow); GLUCOSE, URINE NEGATIVE (Neg); KETONES,URINE NEGATIVE (Neg); LEUKOCYTE ESTERASE ,URINE NEGATIVE (Neg); NITRITES, URINE NEGATIVE (Neg); OCCULT BLOOD,URINE MODERATE (Neg); PROTEIN,URINE 100 mg/dl (Neg)
[2022-10-29 21:50] LABS: UA COLLECTION TYPE VOIDED
[2022-10-29 21:51] LABS: OSMOLALITY UA 347 MOSM/K (50-1400)
[2022-10-29 21:54] LABS: AMORPHOUS URATES 3+; BACTERIA,URINE 1+ /HPF (Neg); SODIUM,URINE RANDOM < 15 MEQ/L; SQUAMOUS EPITHELIAL CELL,UR MANY /LPF (FEW); TOTAL PROTEIN,URINE RANDOM 365.3 MG/DL
[2022-10-29] MEDS ORDERED: SPIR50TA5 PO (22:13)
[2022-10-29] MEDS ORDERED: [UNRECOGNIZED DRUG - CODE] (22:14)
[2022-10-29] MEDS ORDERED: ACET-2119 PO (22:14)
[2022-10-29] MEDS ORDERED: PANT-47 PO (22:14)
[2022-10-29] MEDS ORDERED: PARO20TA6 PO (22:14)
[2022-10-29] MEDS ORDERED: LACT10SO7 PO (22:14)
[2022-10-29] MEDS ORDERED: KAY15L PO (22:14)
[2022-10-29] MEDS ORDERED: DOCU100C40 PO (22:14)
[2022-10-29] MEDS ORDERED: NITR0.4T51 SL (22:14)
[2022-10-29] MEDS ORDERED: ALB0.5UD IH (22:14)
[2022-10-29] MEDS ORDERED: ONDA8TAB13 PO (22:14)
[2022-10-29] MEDS ORDERED: ZITTEL BALM TOP (22:14)
[2022-10-29] MEDS ORDERED: GABA-530 PO (22:14)
[2022-10-29] MEDS ORDERED: PRAM113C TOP (22:14)
[2022-10-29] MEDS ORDERED: NYST30CR34 TOP (22:14)
[2022-10-29] MEDS ORDERED: INSU100V43 SQ (22:14)
[2022-10-29] MEDS ORDERED: LANTUS SQ (22:14)
[2022-10-29] MEDS ORDERED: MICO45CR46 TOP (22:14)
[2022-10-29] MEDS ORDERED: POLY119P2 PO (22:14)
[2022-10-29] MEDS ORDERED: HYDR-3965 PO (22:14)
[2022-10-29] MEDS ORDERED: FURO40SO4 IVP (22:14)
--- NOTE | 2022-10-29 23:58 | NUR ---
Patient in room ED 6. I have received report from Rubina EVERETT RN and had the opportunity to ask questions and assume patient care.
[2022-10-30] VITALS (20 sets, daily range): BP systolic 106–135; BP diastolic 45–70
[2022-10-30] MEDS ORDERED: PARO10TA4 PO (00:09)
[2022-10-30] MEDS ORDERED: ASPI-920 PO (00:09)
[2022-10-30] MEDS ORDERED: PRAM177L28 TOP (00:09)
[2022-10-30] MEDS ORDERED: MICO57CR2 TOP (00:09)
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
[2022-10-30] MEDS ORDERED: LORA0.5P PO (00:37)
[2022-10-30] MEDS ORDERED: ONDA4TAB12 PO (00:37)
[2022-10-30 07:34] LABS: BASOPHILS % (AUTO) 0.1 % (0-1); EOSINOPHILS % (AUTO) 0 % (0-6); HEMATOCRIT 38.9 % (42.0-52.0); HEMOGLOBIN 12.7 g/dl (14.0-17.9); LYMPHOCYTES # (AUTO) 0.5 X10'3 (1.1-4.8); LYMPHOCYTES % (AUTO) 7.5 % (21-51); MEAN CORPUSCULAR HEMOGLOBIN 27.2 PG (27.0-31.0); MEAN CORPUSCULAR HGB CONC 32.6 g/dL (33.0-36.5); MEAN CORPUSCULAR VOLUME 83.3 FL (78-98); MEAN PLATELET VOLUME 10.4 FL (7.4-10.4); MONOCYTES % (AUTO) 14.4 % (2-12); NEUTROPHILS # (AUTO) 5.4 X10'3 (1.8-7.7); PLATELET COUNT 421 X10'3 (140-440); RED BLOOD COUNT 4.67 X10'6 (4.70-6.10); WHITE BLOOD COUNT 6.9 X10'3 (4.5-11.0)
[2022-10-30] MEDS ORDERED: clopidogrel 75mg tablet PO SCH (08:00)
[2022-10-30 08:10] LABS: ALANINE AMINOTRANSFERASE 422 U/L (12-78); ALBUMIN/GLOBULIN RATIO 0.8 (1.1-1.5); ALKALINE PHOSPHATASE 350 IU/L (46-116); ANION GAP 14 (8-16); ASPARTATE AMINO TRANSFERASE 526 U/L (10-37); BILIRUBIN,TOTAL 3.8 MG/DL (0.1-1.0); BLOOD UREA NITROGEN 100 MG/DL (7-18); BUN/CREATININE RATIO 21.9 (5.4-32.0); CHLORIDE 83 MMOL/L (99-107); CREATININE 4.57 MG/DL (0.60-1.10); GLUCOSE 150 MG/DL (70-104); POTASSIUM 5.9 MMOL/L (3.5-5.1); TOTAL PROTEIN 6.9 G/DL (6.4-8.2); eGFR 13 ML/MIN
[2022-10-30 08:11] LABS: SODIUM 119 MMOL/L (135-145)
--- NOTE | 2022-10-30 08:15 | NUR ---
Problems reprioritized. Patient report given, questions answered & plan of care reviewed with Alexis LONDONO.
[2022-10-30] MEDS: albuterol 2.5 MG/3 ML nebule NEB PRN ×3 (08:23→21:05)
[2022-10-30] MEDS: budesonide 0.5mg/2ml UD nebule IH SCH ×2 (08:23→21:05)
--- NOTE | 2022-10-30 08:40 | NUR ---
hospitalist paged with critical lab results of: Sodium 119. No new orders at this time
[2022-10-30] MEDS: carVEDilol 3.125mg tablet PO SCH ×2 (09:16→22:23)
[2022-10-30] MEDS: sodium bicarbonate (8.4%) inj. 100 MEQ in dextrose 5%-water 1,000 ML IV SCH ×2 (09:17→15:25)
[2022-10-30] MEDS: busPIRone 15mg tablet PO SCH ×2 (09:21→22:23)
[2022-10-30] MEDS: heparin, porcine 5000 units/ml vial SQ SCH (09:22)
[2022-10-30] MEDS ORDERED: pneumococcal 23-VAL P-sac vacc 25 mcg/0.5ml vial IMVAC ONE (10:00)
[2022-10-30] MEDS ORDERED: heparin 1,000 units/ml 10ml inj HE ONE ×4 (11:10→11:50)
[2022-10-30] MEDS ORDERED: mannitol 12.5gm/50mL VIAL IV ONE (11:15)
[2022-10-30] MEDS ORDERED: EPOETIN ALFA-EPBX 20,000 UNIT/ML 1 ML MDV IV ONE (11:15)
[2022-10-30] MEDS ORDERED: albumin (human) 25% 100ml IV 100 ML IV PRN (11:15)
[2022-10-30] MEDS ORDERED: heparin 1,000unit/ml 10ml vial 10 ML IV ONE (11:15)
[2022-10-30] MEDS ORDERED: heparin 1,000 units/ml 10ml inj IV ONE (11:15)
--- NOTE | 2022-10-30 11:44 | NUR ---
ORDERS FOR STAT CHEST XRAY PUT IN PER DR. CEDILLO FOR URVASHI PLACEMENT.
--- NOTE | 2022-10-30 12:00 | NUR ---
Orders for STAT 2 view chest xray put in per Dr. Her.
[2022-10-30] MEDS ORDERED: sodium polystyrene sulfonate 15gm/60ml oral suspension PO ONE ×2 (14:20→17:10)
[2022-10-30] MEDS ORDERED: insulin regular, human 10 units/0.1 ml syringe IV ONE ×2 (14:20→17:10)
[2022-10-30] MEDS ORDERED: dextrose 50%-water 50ml dispensing syringe IV ONE ×2 (14:20→17:10)
[2022-10-30] MEDS ORDERED: calcium chloride 100 MG/1 ML inj IV ONE (14:20)
--- NOTE | 2022-10-30 14:23 | NUR ---
Received pt report from Alexis LONDONO. Patient coming to room 2007.
--- NOTE | 2022-10-30 14:36 | NUR ---
Patient will be going to OR today per Dr. Weaver and Dr. Navarrete to have line removed from carotid.
[2022-10-30] MEDS: ondansetron/PF 4mg/2ml inj IV PRN ×2 (15:36→22:23)
[2022-10-30] MEDS ORDERED: SODIUM ZIRCONIUM CYCLOSILICATE 10 GM POWD.PACK PO ONE ×2 (17:10→21:00)
[2022-10-30] MEDS ORDERED: heparin sodium, porcine/PF 100unit/ml 5ML syringe ONE (17:52)
[2022-10-30] MEDS ORDERED: heparin 10,000 units/1 ML INJ ONE ×2 (17:52→19:23)
[2022-10-30] MEDS ORDERED: HYDROmorphone/PF 0.2 MG/ML SYRINGE IV PRN ×2 (17:55)
[2022-10-30] MEDS ORDERED: morphine 2 MG/ML inj. syringe IV PRN (17:55)
[2022-10-30] MEDS ORDERED: proCHLORperazine 10 MG/2 ml inj IV PRN (17:55)
[2022-10-30] MEDS ORDERED: labetalol 20mg/4ml (5mg/ml) syringe IV PRN (17:55)
[2022-10-30] MEDS ORDERED: morphine 4 MG/ML inj SYRINge IV PRN (17:55)
[2022-10-30] MEDS ORDERED: ondansetron/PF 4mg/2ml inj IV PRN (17:55)
[2022-10-30] MEDS ORDERED: hydrALAZINE 20mg/ml inj. IV PRN (17:55)
[2022-10-30] MEDS ORDERED: ringers solution, lacted 1,000 ML IV SCH (17:55)
[2022-10-30] MEDS ORDERED: fentaNYL/PF 50MCG/1 ML 2ML syringe ONE (18:23)
[2022-10-30] MEDS ORDERED: midazolam 1 mg/ML 2ml injection ONE (18:27)
--- NOTE | 2022-10-30 18:27 | NUR ---
Problems reprioritized. Patient report given, questions answered & plan of care reviewed with Shelby LONDONO.
--- NOTE | 2022-10-30 18:30 | NUR ---
Patient in room CICU 2008. I have received report from Yamilka LONDONO and had the opportunity to ask questions and assume patient care. Pt just taken to the OR will return from recovery.
[2022-10-30] MEDS ORDERED: 0.9 % SODIUM CHLORIDE 10 ML VIAL ONE ×2 (18:32→18:33)
[2022-10-30] MEDS ORDERED: ceFAZolin 1000mg inj ONE ×2 (18:32→18:33)
[2022-10-30] MEDS ORDERED: propofol inj 20 ML IV ONE (18:33)
[2022-10-30] MEDS ORDERED: LIDOcaine 2% (20mg/ml) 5ml vial ONE (18:33)
[2022-10-30] MEDS ORDERED: heparin sodium, porcine/PF 100unit/ml 5ML syringe IV ONE ×2 (19:05)
[2022-10-30] MEDS ORDERED: bacitracin 15gm ointment TP ONE (19:33)
[2022-10-30] MEDS ORDERED: ePHEDrine 50MG/ML INJ. ONE (19:34)
[2022-10-30] MEDS ORDERED: glycopyrrolate 0.2mg/ml inj ONE (19:34)
[2022-10-30] MEDS ORDERED: heparin 1,000unit/ml 10ml vial 10 ML ONE (19:34)
--- NOTE | 2022-10-30 20:02 | NUR ---
Received from OR via ICU BED , accompanied by Anesthesiologist CEDRIC and report given by Anesthesiolgist. PATIENT WITH 20GPIV IN RIGHT UE RUNNING D5 SODIUMBICARB AT 125. CONFIRMED WITH MD STEELE AND STATES TO KEEP THIS RUNNING AT CURRENT RATE. VSS. RIGHT DIALYSIS CATHETER PRESENT AND CDI. NO SIGNS OF BLEEDING AT THE SITE AT THIS TIME WILL CONTINUE TO ASSESS. 10L MASK ON WITH 100% SATURATIONS AND VSS. Addendum: 10/30/22 at 2018 by Mark Camargo RN, RN Amended: Links added.
--- NOTE | 2022-10-30 20:23 | NUR ---
ADDENDUM. 2 PIECE DENTURES IN LABELED CONTAINER WITH PATIENT AND DEREK HOLT UPON ARRIVAL FOR PATIENT COMFORT. Addendum: 10/30/22 at 2051 by Mark Camargo RN, RN Amended: Links added.
--- NOTE | 2022-10-30 20:49 | NUR ---
ADDENDUM: HARPER DRAIN PRESENT FROM RIGHT NECK AREA THAT IS CDI. SOFT TO TOUCH. APPROX 15CC OF BLOODY DRAINAGE IN HARPER. Report called to receiving nurse. Transferred via ICU BED WITH 2 PIECE DENTURE IN LABELED CONTAINER WITH A PAIR OF GLASSES. THESE ITEMS WERE GIVEN TO RN ON SHIFT. NO OTHER Belongings. RE DONNED DEREK HUGGER UPON ARRIVAL. VSS. RN PRESENT TO ACCEPT CARE WELL BLUEPRINT MAKER SARAH. Special Issues communicated to receiving nurse.CARE TURNED OVER TO RN ON SHIFT WITH PATIENT IN STABLE CONDITION. DRESSING TO NECK WITH SLIGHT SHADOWING UPON DRESSING BUT ALL CONTAINED WITHIN. BULB MAINTAINING SUCTION. Addendum: 10/30/22 at 2051 by Mark Peña - BRY RN Amended: Links added.
[2022-10-30] MEDS ORDERED: SODIUM ZIRCONIUM CYCLOSILICATE 10 GM POWD.PACK PO SCH (21:00)
--- NOTE | 2022-10-30 21:00 | NUR ---
Pt arrived from recovery, report received from Mark LONDONO, questions answered. Pt transferred over to CC monitor, supplemental O2 via nasal cannula continued. Pt is drowsy, wakes easily and is still clearing anesthesia but following commands. No complaint of pain at this time. HARPER drain to the right neck draining minimal amount of sanguinous output.
[2022-10-30] MEDS: furosemide 40mg/4ml inj IV SCH (22:24)
[2022-10-31] VITALS (21 sets, daily range): BP systolic 101–130; BP diastolic 34–65
[2022-10-31] MEDS: sodium bicarbonate (8.4%) inj. 100 MEQ in dextrose 5%-water 1,000 ML IV SCH ×2 (00:43→09:08)
[2022-10-31] MEDS: acetaminophen 325mg tablet PO PRN ×2 (01:43→09:20)
--- NOTE | 2022-10-31 02:15 | NUR ---
Pt more awake, A&O x3, a little fuzzy on time. He has a good swallow and able to take pills. Pt still on supplemental O2 with a productive cough. Pt called his to let her know he was "doing well".
--- NOTE | 2022-10-31 06:34 | NUR ---
Problems reprioritized. Patient report given, questions answered & plan of care reviewed with Domi LONDONO.
[2022-10-31] MEDS: furosemide 40mg/4ml inj IV SCH ×2 (08:00→20:53)
[2022-10-31] MEDS: carVEDilol 3.125mg tablet PO SCH ×2 (08:00→20:53)
[2022-10-31] MEDS: budesonide 0.5mg/2ml UD nebule IH SCH ×2 (08:38→19:38)
[2022-10-31] MEDS: busPIRone 15mg tablet PO SCH ×2 (09:08→20:53)
[2022-10-31 11:10] LABS: BASOPHILS % (AUTO) 0.1 % (0-1); EOSINOPHILS % (AUTO) 0.1 % (0-6); HEMATOCRIT 35.9 % (42.0-52.0); LYMPHOCYTES # (AUTO) 0.6 X10'3 (1.1-4.8); LYMPHOCYTES % (AUTO) 7.3 % (21-51); MEAN CORPUSCULAR HEMOGLOBIN 27.6 PG (27.0-31.0); MEAN CORPUSCULAR HGB CONC 33.4 g/dL (33.0-36.5); MEAN CORPUSCULAR VOLUME 82.8 FL (78-98); MEAN PLATELET VOLUME 10.3 FL (7.4-10.4); MONOCYTES # (AUTO) 1.2 X10'3 (0-0.9); MONOCYTES % (AUTO) 15.1 % (2-12); NEUTROPHILS # (AUTO) 5.9 X10'3 (1.8-7.7); NEUTROPHILS % (AUTO) 77.4 % (42-75); PLATELET COUNT 340 X10'3 (140-440); RED BLOOD COUNT 4.33 X10'6 (4.70-6.10); RED CELL DISTRIBUTION WIDTH 19.1 % (11.5-14.5); WHITE BLOOD COUNT 7.7 X10'3 (4.5-11.0)
[2022-10-31] MEDS ORDERED: EPOETIN ALFA-EPBX 20,000 UNIT/ML 1 ML MDV IV ONE (11:30)
[2022-10-31 11:59] LABS: ANISOCYTOSIS 2+; ELLIPTOCYTES 1+; PLATELET ESTIMATE NORMAL; TOTAL CELLS COUNTED 100
[2022-10-31 12:00] LABS: BURR CELLS FEW; SCHISTOCYTES FEW
[2022-10-31 12:33] LABS: ALANINE AMINOTRANSFERASE 474 U/L (12-78); ALBUMIN 2.9 G/DL (3.4-5.0); ALBUMIN/GLOBULIN RATIO 0.8 (1.1-1.5); ALKALINE PHOSPHATASE 302 IU/L (46-116); ANION GAP 11 (8-16); ASPARTATE AMINO TRANSFERASE 584 U/L (10-37); BILIRUBIN,TOTAL 2.9 MG/DL (0.1-1.0); BLOOD UREA NITROGEN 70 MG/DL (7-18); BUN/CREATININE RATIO 19.8 (5.4-32.0); CALCIUM 8.5 MG/DL (8.5-10.1); CHLORIDE 88 MMOL/L (99-107); CREATININE 3.53 MG/DL (0.60-1.10); GLUCOSE 91 MG/DL (70-104); SODIUM 126 MMOL/L (135-145); TOTAL CARBON DIOXIDE 26.6 MMOL/L (24-32); TOTAL PROTEIN 6.5 G/DL (6.4-8.2); eGFR 18 ML/MIN
--- NOTE | 2022-10-31 15:34 | NUR ---
Bladder scanned patient because post dialysis was stating that he really had to urinate however, only able to have 25 mL output. Bladder scan revealed a bladder volume of 455mL. Dr. Weaver was called with this news and an order was given for x1 straight cath, he stated that if bladder volume is greater than 400mL for a second time then to place a delacruz catheter.
--- NOTE | 2022-10-31 18:15 | NUR ---
Problems reprioritized. Patient report given, questions answered & plan of care reviewed with BRY Headley.
--- NOTE | 2022-10-31 20:05 | NUR ---
report called to Ashlyn BRACELET MAKER NOVELTY. pt and belongings transfered to 3019 on tele monitor, message left for [place] regarding pts transfer, room number and PCU phone number.
--- NOTE | 2022-11-01 01:48 | NUR ---
16 latvian delacruz catheter placed at this time by protocol r/t PVR of >400. Patient tolerated well, clear yellow urine draining to gravity. Call light within reach.
[2022-11-01 02:00] VITALS: BP 112/53
[2022-11-01 07:00] VITALS: BP 107/49
[2022-11-01] MEDS: budesonide 0.5mg/2ml UD nebule IH SCH ×2 (08:00→20:00)
[2022-11-01] MEDS: busPIRone 15mg tablet PO SCH ×2 (08:12→21:05)
[2022-11-01] MEDS: carVEDilol 3.125mg tablet PO SCH ×3 (08:12→21:06)
[2022-11-01] MEDS: furosemide 40mg/4ml inj IV SCH ×2 (08:12→21:06)
[2022-11-01] MEDS ORDERED: mannitol 12.5gm/50mL VIAL IV ONE (08:15)
[2022-11-01] MEDS ORDERED: albumin (human) 25% 100ml IV 100 ML IV PRN (08:15)
[2022-11-01] MEDS ORDERED: EPOETIN ALFA-EPBX 20,000 UNIT/ML 1 ML MDV IV ONE (08:15)
[2022-11-01] MEDS ORDERED: heparin 1,000 units/ml 10ml inj HE ONE ×2 (08:20)
[2022-11-01] MEDS: albuterol 2.5 MG/3 ML nebule NEB PRN (08:35)
[2022-11-01 11:00] VITALS: BP 121/60
[2022-11-01] MEDS: benzonatate 100mg capsule PO PRN (12:37)
[2022-11-01] MEDS ORDERED: pneumococcal 23-VAL P-sac vacc 25 mcg/0.5ml vial IMVAC ONE (14:55)
[2022-11-01 15:00] VITALS: BP 136/58
--- NOTE | 2022-11-01 17:47 | NUR ---
pts brother Nicolás Baird [phone] is bedside and states that the patient has been experiencing paranoid delusions prior to his admission here and would benefit from a psyc eval. Nicolás states that this was occurring at [facility] prior to pt coming here. The patient believes there is an implanted device in his head and that there are people following him and the staff here is out to get him by contaminating the food. Will communicate with NOC RN and tell them to report to day shift as well.
[2022-11-01 18:00] VITALS: BP 104/56
--- NOTE | 2022-11-01 18:41 | NUR ---
Patient in room PCU 3019. I have received report from BRY DIAZ and had the opportunity to ask questions and assume patient care.
[2022-11-01 22:00] VITALS: BP 107/53
[2022-11-02 01:59] VITALS: BP 92/46
[2022-11-02 05:16] LABS: HBSAG SCREEN Negative (Negative)
[2022-11-02 06:00] VITALS: BP 98/49
--- NOTE | 2022-11-02 06:37 | NUR ---
Problems reprioritized. Patient report given, questions answered & plan of care reviewed with BRY ONTIVEROS.
[2022-11-02 07:11] LABS: ALANINE AMINOTRANSFERASE 213 U/L (12-78); ALBUMIN 2.8 G/DL (3.4-5.0); ALBUMIN/GLOBULIN RATIO 0.8 (1.1-1.5); ALKALINE PHOSPHATASE 255 IU/L (46-116); ANION GAP 12 (8-16); ASPARTATE AMINO TRANSFERASE 217 U/L (10-37); BILIRUBIN,TOTAL 2.5 MG/DL (0.1-1.0); BLOOD UREA NITROGEN 63 MG/DL (7-18); BUN/CREATININE RATIO 16.8 (5.4-32.0); CHLORIDE 92 MMOL/L (99-107); CREATININE 3.75 MG/DL (0.60-1.10); GLUCOSE 146 MG/DL (70-104); POTASSIUM 4.4 MMOL/L (3.5-5.1); SODIUM 131 MMOL/L (135-145); TOTAL CARBON DIOXIDE 26.6 MMOL/L (24-32); TOTAL PROTEIN 6.5 G/DL (6.4-8.2); eGFR 16 ML/MIN
[2022-11-02 07:28] LABS: BASOPHILS % (AUTO) 0.2 % (0-1); EOSINOPHILS % (AUTO) 0.4 % (0-6); HEMATOCRIT 38.3 % (42.0-52.0); HEMOGLOBIN 12.5 g/dl (14.0-17.9); MEAN CORPUSCULAR HEMOGLOBIN 26.9 PG (27.0-31.0); MEAN CORPUSCULAR HGB CONC 32.7 g/dL (33.0-36.5); MEAN CORPUSCULAR VOLUME 82.4 FL (78-98); MONOCYTES # (AUTO) 1.6 X10'3 (0-0.9); MONOCYTES % (AUTO) 16.1 % (2-12); NEUTROPHILS # (AUTO) 7.3 X10'3 (1.8-7.7); NEUTROPHILS % (AUTO) 73.3 % (42-75); PLATELET COUNT 281 X10'3 (140-440); RED BLOOD COUNT 4.65 X10'6 (4.70-6.10); WHITE BLOOD COUNT 9.9 X10'3 (4.5-11.0)
[2022-11-02] MEDS: budesonide 0.5mg/2ml UD nebule IH SCH ×2 (08:00→19:49)
[2022-11-02] MEDS: carVEDilol 3.125mg tablet PO SCH ×3 (08:44→20:00)
[2022-11-02] MEDS: furosemide 40mg/4ml inj IV SCH ×3 (08:44→20:00)
[2022-11-02] MEDS: busPIRone 15mg tablet PO SCH ×2 (10:00→19:51)
[2022-11-02 11:43] LABS: HEP B CORE AB, TOT Negative (Negative)
[2022-11-02 16:00] LABS: UREA NITROGEN 24HR,URINE 8.7 GM/24HR (7-20)
[2022-11-02 18:48] VITALS: BP 109/51
[2022-11-02] MEDS: traZODone 50mg tablet PO SCH (19:51)
[2022-11-02 22:00] VITALS: BP 92/48
[2022-11-03 02:00] VITALS: BP 115/56
[2022-11-03 06:00] VITALS: BP 128/60
--- NOTE | 2022-11-03 06:20 | NUR ---
Problems reprioritized. Patient report given, questions answered & plan of care reviewed with BRY ONTIVEROS.
[2022-11-03 07:17] LABS: BASOPHILS % (AUTO) 0.5 % (0-1); EOSINOPHILS # (AUTO) 0.1 X10'3 (0-0.9); EOSINOPHILS % (AUTO) 0.9 % (0-6); HEMATOCRIT 38.3 % (42.0-52.0); HEMOGLOBIN 12.5 g/dl (14.0-17.9); LYMPHOCYTES # (AUTO) 1.1 X10'3 (1.1-4.8); LYMPHOCYTES % (AUTO) 12.4 % (21-51); MEAN CORPUSCULAR HEMOGLOBIN 27.2 PG (27.0-31.0); MEAN CORPUSCULAR HGB CONC 32.8 g/dL (33.0-36.5); MEAN CORPUSCULAR VOLUME 82.9 FL (78-98); MEAN PLATELET VOLUME 10.1 FL (7.4-10.4); MONOCYTES # (AUTO) 1.3 X10'3 (0-0.9); MONOCYTES % (AUTO) 14.9 % (2-12); NEUTROPHILS # (AUTO) 6.2 X10'3 (1.8-7.7); NEUTROPHILS % (AUTO) 71.3 % (42-75); PLATELET COUNT 237 X10'3 (140-440); RED BLOOD COUNT 4.62 X10'6 (4.70-6.10); RED CELL DISTRIBUTION WIDTH 19.8 % (11.5-14.5); WHITE BLOOD COUNT 8.7 X10'3 (4.5-11.0)
[2022-11-03 07:39] LABS: ALANINE AMINOTRANSFERASE 149 U/L (12-78); ALBUMIN 2.7 G/DL (3.4-5.0); ALBUMIN/GLOBULIN RATIO 0.8 (1.1-1.5); ALKALINE PHOSPHATASE 224 IU/L (46-116); ANION GAP 13 (8-16); ASPARTATE AMINO TRANSFERASE 135 U/L (10-37); BILIRUBIN,TOTAL 2.2 MG/DL (0.1-1.0); BLOOD UREA NITROGEN 66 MG/DL (7-18); CALCIUM 9.1 MG/DL (8.5-10.1); CHLORIDE 94 MMOL/L (99-107); CREATININE 3.67 MG/DL (0.60-1.10); GLUCOSE 131 MG/DL (70-104); POTASSIUM 4.5 MMOL/L (3.5-5.1); SODIUM 133 MMOL/L (135-145); TOTAL CARBON DIOXIDE 26.5 MMOL/L (24-32); TOTAL PROTEIN 6.3 G/DL (6.4-8.2); eGFR 17 ML/MIN
[2022-11-03] MEDS: carVEDilol 3.125mg tablet PO SCH ×2 (08:00→21:16)
[2022-11-03] MEDS ORDERED: normal saline 1000ml 100 ML IV PRN (08:00)
[2022-11-03] MEDS ORDERED: heparin 1,000 units/ml 10ml inj HE ONE (08:00)
[2022-11-03] MEDS: furosemide 40mg/4ml inj IV SCH ×2 (08:00→21:17)
[2022-11-03] MEDS: busPIRone 15mg tablet PO SCH ×2 (08:00→20:00)
--- NOTE | 2022-11-03 08:00 | NUR ---
Patient to get HD today. Holding lasix secondary to tendency for low bp after lasix
[2022-11-03] MEDS: PARoxetine 10mg tablet PO SCH (08:52)
[2022-11-03 09:04] LABS: ANISOCYTOSIS 2+; PLATELET ESTIMATE NORMAL
[2022-11-03 09:05] LABS: BURR CELLS FEW; ELLIPTOCYTES FEW; POIKILOCYTOSIS 1+; SCHISTOCYTES FEW
--- NOTE | 2022-11-03 09:50 | NUR ---
Initial: Pt admitted w/ hyponatremia, PB/CKD, and CHF per EMR. Currently on Heart Healthy diet w/ 1.5L fluid restriction, avg intake 45% of meals partially meeting est needs. Pt could benefit from Nepro BID to assist w/ meeting increased needs if MD agreeable given fluid restriction. Pt on HD at the moment, last treatment 11/01 w/ 2.8L out per documentation. LBM 10/30. Pt noted to be delusional at times. Will continue to monitor. Recs: 1. Continue Heart Healthy/1.5L fluid restriction per MD 2. Nepro BIDBD; pending MD verification 3. Routine bowel care if MD agreeable 4. Scaled wts w/ HD Addendum: 11/03/22 at [address] Amended: Links added.
[2022-11-03] MEDS: budesonide 0.5mg/2ml UD nebule IH SCH ×2 (10:45→19:23)
[2022-11-03 15:49] VITALS: BP 103/54
[2022-11-03] MEDS: acetaminophen 325mg tablet PO PRN (15:53)
[2022-11-03] MEDS: benzonatate 100mg capsule PO PRN (16:51)
[2022-11-03 18:00] VITALS: BP 106/62
[2022-11-03] MEDS: traZODone 50mg tablet PO SCH (21:16)
[2022-11-03] MEDS: lactulose 20gm/30ml cup PO SCH (21:16)
[2022-11-03 23:31] VITALS: BP 100/46
[2022-11-04] MEDS: lactulose 20gm/30ml cup PO SCH ×4 (01:06→19:41)
[2022-11-04 02:10] VITALS: BP 97/49
--- NOTE | 2022-11-04 02:55 | NUR ---
Patient took half the ordered dose of lactulose at 1999 on 11/03/22 and refused lactulose medication at 0200 on 11/04/22.
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
--- NOTE | 2022-11-04 07:10 | NUR ---
RPXimena called and requested the phone be removed from Pt as he will not stop calling. I went to Pt and stated that the police wanted me to take his phone away. He refused to relinquish his phone. [facility] security notified. Pt refusing V/S at this time.
[2022-11-04] MEDS: NUT.TX.IMP.RENAL FXN,LAC-REDUC (Nepro) 237 ML VANILLA PO SCH ×3 (07:30→19:38)
[2022-11-04] MEDS: busPIRone 15mg tablet PO SCH ×2 (08:00→19:41)
[2022-11-04] MEDS ORDERED: pneumococcal 23-VAL P-sac vacc 25 mcg/0.5ml vial IMVAC ONE (08:00)
[2022-11-04] MEDS: furosemide 40mg/4ml inj IV SCH ×2 (08:00→21:28)
[2022-11-04] MEDS: PARoxetine 10mg tablet PO SCH (08:17)
--- NOTE | 2022-11-04 08:17 | NUR ---
Pt refused Lasix. Stating it makes him "sweat and keeps the water in". refuses to be educated.
[2022-11-04] MEDS: carVEDilol 3.125mg tablet PO SCH ×2 (08:18→19:42)
[2022-11-04 08:42] LABS: BASOPHILS % (AUTO) 0.2 % (0-1); EOSINOPHILS # (AUTO) 0.1 X10'3 (0-0.9); EOSINOPHILS % (AUTO) 0.7 % (0-6); HEMATOCRIT 38.6 % (42.0-52.0); HEMOGLOBIN 12.4 g/dl (14.0-17.9); LYMPHOCYTES % (AUTO) 12.8 % (21-51); MEAN CORPUSCULAR HEMOGLOBIN 26.8 PG (27.0-31.0); MEAN CORPUSCULAR VOLUME 83.8 FL (78-98); MEAN PLATELET VOLUME 9.9 FL (7.4-10.4); MONOCYTES # (AUTO) 1.1 X10'3 (0-0.9); MONOCYTES % (AUTO) 12.9 % (2-12); NEUTROPHILS % (AUTO) 73.4 % (42-75); PLATELET COUNT 213 X10'3 (140-440); RED BLOOD COUNT 4.61 X10'6 (4.70-6.10); RED CELL DISTRIBUTION WIDTH 19.8 % (11.5-14.5); WHITE BLOOD COUNT 8.2 X10'3 (4.5-11.0)
[2022-11-04 09:04] LABS: ALANINE AMINOTRANSFERASE 128 U/L (12-78); ALBUMIN/GLOBULIN RATIO 0.8 (1.1-1.5); ALKALINE PHOSPHATASE 219 IU/L (46-116); ANION GAP 9 (8-16); ASPARTATE AMINO TRANSFERASE 105 U/L (10-37); BILIRUBIN,TOTAL 2.5 MG/DL (0.1-1.0); BLOOD UREA NITROGEN 47 MG/DL (7-18); BUN/CREATININE RATIO 16.3 (5.4-32.0); CALCIUM 8.9 MG/DL (8.5-10.1); CHLORIDE 94 MMOL/L (99-107); CREATININE 2.88 MG/DL (0.60-1.10); GLUCOSE 199 MG/DL (70-104); POTASSIUM 4.4 MMOL/L (3.5-5.1); SODIUM 131 MMOL/L (135-145); TOTAL CARBON DIOXIDE 28.5 MMOL/L (24-32); TOTAL PROTEIN 6.7 G/DL (6.4-8.2); eGFR 22 ML/MIN
[2022-11-04] MEDS: budesonide 0.5mg/2ml UD nebule IH SCH ×2 (10:55→20:00)
[2022-11-04] MEDS ORDERED: FURO40TA4 PO (11:43)
[2022-11-04] MEDS ORDERED: COR3.125T PO (11:43)
--- NOTE | 2022-11-04 12:19 | NUR ---
Patient explained order per Dr. Cowan to discontinue TDC to Right jugular vein and Bairon Barry Drain. Patient verbalized understanding. No questions. Patient tolerated procedure. Patient had small amount of sanguineous drainage when discontinuing TDC. Patient became irritable due to pressure applied to stop bleeding. Drugless Physician trained patient with breathing techniques and mostly effective. Bleeding stopped after 8 minutes of pressure applied. Sterile technique utilized. applied two 2x2 sterile dressing and tegaderm. Patient tolerated well.
--- NOTE | 2022-11-04 12:26 | NUR ---
minimal Weeping edema noted to BLE, patient refuses to elevate extremities, patient refuses education. Addendum: 11/04/22 at 1230 by Jack Restrepo LVN Amended: Links added.
--- NOTE | 2022-11-04 12:27 | NUR ---
refused SPO2 assessment Addendum: 11/04/22 at 1230 by Jack Restrepo LVN Amended: Links added.
--- NOTE | 2022-11-04 12:54 | NUR ---
Pt making threats to pull out delacruz catheter. Automatic Packer Operator attempted to educate patient on importance of current delacruz order. He refuses any education. He states he wants to talk to the doctor. Dr. Cowan notified. He orders to discontinue delacruz catheter and assess for urinary retention.
--- NOTE | 2022-11-04 13:19 | NUR ---
Patient is becoming very irritable and agitated. He is donning street clothes desiring to leave AMA. Patient is paranoid. Discharge planning scheduled patient for [facility]. Therapeutic communication ineffective. notified to attempt to deescalate patient. He refuses to answer 's communication. notified. PAGER ID: [phone] MESSAGE: [id number]- Oli- Patient is donning his street clothes and desiring to leave AMA. called to attempt to deescalate him. Maria Teresa Restrepo LVN. Security notified to come to floor for assistance. Security arrived 1324hrs Addendum: 11/04/22 at 1327 by Jack Restrepo LVN Security at bedside 1327hrs
[2022-11-04] MEDS ORDERED: ziprasidone IM 20mg inj **IM only IM STA (13:25)
--- NOTE | 2022-11-04 13:31 | NUR ---
ESSAGE: [id number] Oli wants to talk to you please. Maricel GALLAGHER
--- NOTE | 2022-11-04 13:47 | NUR ---
Patient's called process description writer to inform patient to call her. He refuses to call or brother at this time. He stated he will call afterward.
--- NOTE | 2022-11-04 13:57 | NUR ---
Patient brother Nicolás is at bedside, attempting to deescalate patient. Dr. Cowan ordered Ziprasadone for severe agitation. Patient expalined purpose of medication. PT declines med. Pt brother attempting to therapeutically de-escalate patient. Pt having delusions about other rooms in hospital doing drug deals and smoking affecting patient's health. Security outside of room and patient's brother continues to sit with patient at beside.
--- NOTE | 2022-11-04 16:20 | NUR ---
Dr. Cowan notified. PAGER ID: [phone] MESSAGE: [id number] Baird- Pt brother requesting to speak to you. Maria Teresa Restrepo LVN
--- NOTE | 2022-11-04 17:49 | NUR ---
I have reviewed and agree with all interventions, assessments performed and documented by Jack LUND. Addendum: 11/04/22 at 1750 by Maricel Harris RN Amended: Links added.
[2022-11-04 18:00] VITALS: BP 119/59
--- NOTE | 2022-11-04 18:19 | NUR ---
Problems reprioritized. Patient report given, questions answered & plan of care reviewed with Thomas LONDONO. Call light within reach. Pt comfortable. Bedside report given. Pt pulled off dressing on right aspect of neck. Resistive to wound care teaching. Addendum: 11/04/22 at 1820 by Jack Restrepo LVN Amended: Links added.
[2022-11-04] MEDS: traZODone 50mg tablet PO SCH (19:41)
[2022-11-04] MEDS ORDERED: OLANZapine 5mg rapidly disint. tablet PO SCH (20:00)
--- NOTE | 2022-11-04 21:39 | NUR ---
MD Meza notified by telephone that patient refused buspar, carvedilol, trazadone, lactulose, and olanzipine. also notified that patient refused 80mg dose of lasix and instead wanted 20 mg of iv lasix. MD Meza said it was ok to give the partial dose of lasix that patient requested and that the patient had the right to refuse the other medications.
[2022-11-04 22:03] VITALS: BP 103/52
[2022-11-05] MEDS: lactulose 20gm/30ml cup PO SCH ×2 (01:07→07:50)
[2022-11-05 02:56] VITALS: BP 141/57
[2022-11-05 06:00] VITALS: BP 126/66
--- NOTE | 2022-11-05 06:21 | NUR ---
Patient in room PCU 3019. I have received report from Thomas LONDONO and had the opportunity to ask questions and assume patient care.Will follow care of Pt with Jack LUND. Addendum: 11/05/22 at 0621 by Maricel Harris RN Amended: Links added.
--- NOTE | 2022-11-05 06:36 | NUR ---
Patient in room U 3013. I have received report from Thomas LONDONO and had the opportunity to ask questions and assume patient care. Bed Side report given. Patient is sitting in recliner chair awaiting to be discharged. No distress noted. Patient has street clothes on with his personal shoes. Patient requesting wheelchair. Shuttle Fixer educated patient when patient will be discharged to [facility], we will bring a wheelchair for him. Addendum: 11/05/22 at 0638 by Jack Restrepo LVN Amended: Links added.
[2022-11-05 07:14] LABS: BASOPHILS % (AUTO) 0.2 % (0-1); EOSINOPHILS % (AUTO) 0.4 % (0-6); HEMATOCRIT 39.6 % (42.0-52.0); HEMOGLOBIN 12.7 g/dl (14.0-17.9); LYMPHOCYTES # (AUTO) 1.2 X10'3 (1.1-4.8); LYMPHOCYTES % (AUTO) 12.8 % (21-51); MEAN CORPUSCULAR VOLUME 84.4 FL (78-98); MEAN PLATELET VOLUME 10.2 FL (7.4-10.4); MONOCYTES # (AUTO) 1.6 X10'3 (0-0.9); MONOCYTES % (AUTO) 16.4 % (2-12); NEUTROPHILS # (AUTO) 6.7 X10'3 (1.8-7.7); NEUTROPHILS % (AUTO) 70.2 % (42-75); PLATELET COUNT 209 X10'3 (140-440); RED CELL DISTRIBUTION WIDTH 20.4 % (11.5-14.5); WHITE BLOOD COUNT 9.5 X10'3 (4.5-11.0)
[2022-11-05 07:49] LABS: ANISOCYTOSIS 3+; MICROCYTOSIS 1+; NUCLEATED RED BLOOD CELLS 2 /100WBC (0-0); PLATELET ESTIMATE NORMAL; SCHISTOCYTES FEW; TOTAL CELLS COUNTED 100
[2022-11-05] MEDS: NUT.TX.IMP.RENAL FXN,LAC-REDUC (Nepro) 237 ML VANILLA PO SCH (07:49)
[2022-11-05] MEDS: busPIRone 15mg tablet PO SCH (07:50)
[2022-11-05] MEDS: carVEDilol 3.125mg tablet PO SCH (07:50)
[2022-11-05] MEDS: furosemide 40mg/4ml inj IV SCH (08:00)
--- NOTE | 2022-11-05 08:07 | NUR ---
Pt refused IV lasix this a.m. He stated that he already took it today. I was unable to assure Pt that he took it last night. Pt continues to sit in the doorway of his room.
[2022-11-05 08:50] LABS: ALANINE AMINOTRANSFERASE 126 U/L (12-78); ALBUMIN 3.2 G/DL (3.4-5.0); ALBUMIN/GLOBULIN RATIO 0.8 (1.1-1.5); ALKALINE PHOSPHATASE 214 IU/L (46-116); ANION GAP 15 (8-16); ASPARTATE AMINO TRANSFERASE 99 U/L (10-37); BILIRUBIN,TOTAL 3.2 MG/DL (0.1-1.0); BLOOD UREA NITROGEN 52 MG/DL (7-18); BUN/CREATININE RATIO 16.1 (5.4-32.0); CALCIUM 9.6 MG/DL (8.5-10.1); CHLORIDE 94 MMOL/L (99-107); CREATININE 3.23 MG/DL (0.60-1.10); GLUCOSE 114 MG/DL (70-104); POTASSIUM 5.3 MMOL/L (3.5-5.1); SODIUM 133 MMOL/L (135-145); TOTAL CARBON DIOXIDE 24.1 MMOL/L (24-32); eGFR 20 ML/MIN
--- NOTE | 2022-11-05 08:59 | NUR ---
Dr. Baires notified of abnormal lab. PAGER ID: [phone] MESSAGE: [id number]- Oli. Pt K 5.3. LCorona THERMOMETER MAKER
[2022-11-05] MEDS: budesonide 0.5mg/2ml UD nebule IH SCH (09:00)
--- NOTE | 2022-11-05 09:29 | NUR ---
Pt. sleeping soundly. Did not awaken for SVN
--- NOTE | 2022-11-05 12:30 | NUR ---
I have reviewed and agree with all interventions, assessments performed and documented by Jack LUND.
--- NOTE | 2022-11-05 12:39 | NUR ---
Discharge verbal instructions provided to Lynette LONDONO of [facility]. All questions answered. [employer]ga [employer] arrived and left with patient 1239hrs. All belongings and cell phone left with patient via wheelchair. Addendum: 11/05/22 at 1252 by Jack Restrepo LVN Amended: Links added.
== END 2022-11-05 12:54 | DRG 469 ==
LOC: ER 16:27 → ED HOLD 19:46 → PCU 3S 10-30 00:12 → CICU 2S 10-30 14:59 → PCU 3S 10-31 20:15
PROVIDERS: ADMIT Internal Medicine; ATTEND Internal Medicine
PROC: 02HV33Z Insertion of Infusion Device into Superior Vena Cava, Percutaneous Approach (ICD-10-PCS; 2022-10-30)
PROC: 05PYX3Z Removal of Infusion Device from Upper Vein, External Approach (ICD-10-PCS; principal; 2022-10-30 18:01)
PROC: 5A1D70Z Performance of Urinary Filtration, Intermittent, Less than 6 Hours Per Day (ICD-10-PCS; 2022-10-31)
PROC: 5A1D70Z Performance of Urinary Filtration, Intermittent, Less than 6 Hours Per Day (ICD-10-PCS; 2022-11-01)
PROC: 5A1D70Z Performance of Urinary Filtration, Intermittent, Less than 6 Hours Per Day (ICD-10-PCS; 2022-11-03)
DX: N17.9 Acute kidney failure, unspecified (principal); I50.23 Acute on chronic systolic (congestive) heart failure; E11.22 Type 2 diabetes mellitus with diabetic chronic kidney disease; F29 Unspecified psychosis not due to a substance or known physiological condition; E87.1 Hypo-osmolality and hyponatremia; K74.60 Unspecified cirrhosis of liver; I13.0 Hypertensive heart and chronic kidney disease with heart failure and stage 1 through stage 4 chronic kidney disease, or unspecified chronic kidney disease; E11.65 Type 2 diabetes mellitus with hyperglycemia; E78.00 Pure hypercholesterolemia, unspecified; E87.5 Hyperkalemia; F14.90 Cocaine use, unspecified, uncomplicated; F32.A Depression, unspecified; F41.9 Anxiety disorder, unspecified; I25.10 Atherosclerotic heart disease of native coronary artery without angina pectoris; N18.9 Chronic kidney disease, unspecified; J44.9 Chronic obstructive pulmonary disease, unspecified; B19.20 Unspecified viral hepatitis C without hepatic coma; G89.29 Other chronic pain; M54.9 Dorsalgia, unspecified; Z20.822 Contact with and (suspected) exposure to COVID-19; K75.81 Nonalcoholic steatohepatitis (NASH); E66.01 Morbid (severe) obesity due to excess calories; I25.2 Old myocardial infarction; Z28.21 Immunization not carried out because of patient refusal; Z79.02 Long term (current) use of antithrombotics/antiplatelets; Z79.4 Long term (current) use of insulin; Z79.84 Long term (current) use of oral hypoglycemic drugs; Z79.899 Other long term (current) drug therapy; Z83.3 Family history of diabetes mellitus; Z86.16 Personal history of COVID-19; Z87.891 Personal history of nicotine dependence; Z91.14 Patient's other noncompliance with medication regimen; Z95.5 Presence of coronary angioplasty implant and graft; Z99.81 Dependence on supplemental oxygen; Z56.0 Unemployment, unspecified; Z88.0 Allergy status to penicillin; Z88.8 Allergy status to other drugs, medicaments and biological substances; Z68.35 Body mass index [BMI] 35.0-35.9, adult; Z79.82 Long term (current) use of aspirin
CPT/HCPCS: 36415; 71045; 80048; 80053; 80076; 81001; 82140; 82570; 82948; 83605; 83930; 83935; 84100; 84132; 84133; 84156; 84300; 84439; 84443; 84540; 84560; 85007; 85008; 85025; 85610; 86704; 86706; 86885; 86900; 86901; 86920; 87040; 87081; 87340; 87811; 90732; 90935; 93005; 93306; 94640; 94760; 97110; 97116; 97161; 97530; 99285; A4615; A4618; A6213; A6250; A6253; A6258; A6402; A6449; A7000; C1752; G0257; G0378; J0610; J0690; J1642; J1644; J1815; J1940; J2150; J2250; J2405; J2704; J3010; J3490; J7030; J7040; J7070; J7120